=== PATIENT | female | born 1960 | race Caucasian/White ===

== ENCOUNTER 2018-08-18 14:13 | Inpatient (IN) | payer MEDICAID, OTHER ==
[~2018-08-18] VITALS: Ht 165.1 cm; Wt 111.2 kg
[2018-08-18] MEDS ORDERED: CIPR500T4 PO (14:42)
[2018-08-18] MEDS ORDERED: NYST50002 PO (14:45)
[2018-08-18] MEDS ORDERED: EMPA25TA PO (14:45)
[2018-08-18] MEDS ORDERED: LOSA100T15 PO (14:46)
[2018-08-18] MEDS ORDERED: ERGO500013 PO (14:47)
[2018-08-18] MEDS ORDERED: LATA2.5D2 BOTH EYES (14:47)
[2018-08-18] MEDS ORDERED: MONT10TA24 PO (14:47)
[2018-08-18] MEDS ORDERED: METF100010 PO (14:53)
[2018-08-18] MEDS ORDERED: OMEP40CA6 PO (14:54)
[2018-08-18] MEDS ORDERED: CITA20TA11 PO (14:55)
[2018-08-18] MEDS ORDERED: CRES20 PO (14:56)
[2018-08-18] MEDS ORDERED: TOLT4CAP13 PO (14:56)
[2018-08-18] MEDS ORDERED: CEFTRIAXONE 1 GM/50 ML (PMX) 50 ML IVPB ONE (15:30)
--- NOTE | 2018-08-18 17:54 | ERD ---
ER Documentation Chief Complaint Chief Complaint HEMATURIA AND UTI SYMPTOMS HPI This is a 58-year-old female with a past medical history of diabetes who presents to the emergency department complaining of hematuria frequency urgency and dysuria that have been present for the past 3 days. Patient was seen by her primary care physician 48 hours ago and was prescribed ciprofloxacin. However she states her symptoms have worsened where she is now experiencing a significant amount of hematuria. The patient states that roughly 1 year ago she had a similar presentation that required a Wayne placement for continuous bladder irrigation. However she states today that the hematuria is not as significant. She complains of mild suprapubic pain. She is scheduled to undergo an outpatient ultrasound of her pelvis. She has no palpitations. She has no shortness of breath at rest or exertion. She denies a headache. She had a tactile fever with shaking and chills. ROS All systems reviewed and are negative except as per history of present illness. Medications Home Meds Reported Medications Rosuvastatin Calcium* (Crestor*) 20 Mg Tablet, 20 MG PO QHS, #30 TAB 08/18/18 Tolterodine Tartrate* (Tolterodine Tartrate* ER) 4 Mg Cap.er.24h, 4 MG PO DAILY, #30 CAP 08/18/18 Citalopram Hydrobromide* (Celexa*) 20 Mg Tablet, 20 MG PO DAILY, #30 TAB 08/18/18 Omeprazole* (Omeprazole*) 40 Mg Capsule.dr, 40 MG PO DAILY, #30 CAP 08/18/18 Metformin Hcl* (Metformin Hcl*) 1,000 Mg Tablet, 1000 MG PO WITH BREAKFAST DINNE, #60 TAB 08/18/18 Montelukast Sodium* (Montelukast Sodium*) 10 Mg Tablet, 10 MG PO QHS, #30 TAB 08/18/18 Latanoprost (Latanoprost) 2.5 Ml Drops, 1 DROP BOTH EYES QHS, #1 BOTTLE 08/18/18 Ergocalciferol (Vitamin D2) (VITAMIN D2) 50,000 Unit Capsule, [id number] UNIT PO EVERY TUESDAY, CAP 08/18/18 Losartan Potassium* (Losartan Potassium*) 100 Mg Tablet, 100 MG PO DAILY, TAB 08/18/18 Empagliflozin (Jardiance) 25 Mg Tablet, 25 MG PO DAILY, TAB 08/18/18 Nystatin (Nystatin) 500,000 Unit Tablet, [id number] UNIT PO BID, TAB STARTED 08-16-18 FOR 7 DAYS 08/18/18 Ciprofloxacin Hcl* (Ciprofloxacin Hcl*) 500 Mg Tablet, 500 MG PO BID, #14 TAB STARTED 08-16-18 FOR 7 DAYS 08/18/18 Allergies Allergies: Uncoded Allergies: PENICILLIN (Allergy, Unknown, 08/18/18) PMhx/Soc Hx Cardiac Disorders: Yes (HTN) Hx Miscellaneous Medical Probl: Yes (UTI) Hx Alcohol Use: No Hx Substance Use: No Hx Tobacco Use: No Smoking Status: Never smoker Physical Exam Vitals Vital Signs Date Temp Pulse Resp B/P (MAP) Pulse Ox O2 O2 Flow FiO2 Time Delivery Rate 08/18/18 98.1 79 18 158/76 98 14:15 (103) Physical Exam Constitutional:Well-developed. Well-nourished. HEENT:Normocephalic. Atraumatic.Pupils were equal round reactive to light. Moist mucous membranes.No tonsillar exudates. Neck: No nuchal rigidity. No lymphadenopathy. No posterior cervical spine tenderness or step-offs. Respiratory: Not using accessory muscles of respiration.Lungs were clear to auscultation bilaterally. No rhonchi. No rales. No wheezing. Cardiovascular: Regular rate regular rhythm.No murmurs. No rubs were appreciated.S1, S2 normal. Distal pulses are palpable 2+ bilaterally. GI: Abdomen was soft. Suprapubic tenderness. Non Distended. No pulsatile abdominal masses or bruits. No rebound. No guarding. Bowel sounds were present and normal. Muscle skeletal: Full range of motion of both the upper and lower extremities bilaterally.Normal muscle tone.No assymetrical calf tenderness or swelling. Skin: No petechia, no purpura. No lesions on the palms or the soles of the feet. No maculopapular rash. NEURO: Patient was alert, awake, orientated x3.No facial droop. Gait observed and normal with no ataxia.Speech had regular rate and rhythm. No focal neurological deficits. Result Diagram: 08/18/18 1439 08/18/18 1440 Results 24 hrs Laboratory Tests Test 08/18/18 14:39 08/18/18 14:40 White Blood Count 11.3 10^3/ul Red Blood Count 4.82 10^6/ul Hemoglobin 13.5 g/dl Hematocrit 41.2 % Mean Corpuscular Volume 85.5 fl Mean Corpuscular Hemoglobin 28.0 pg Mean Corpuscular Hemoglobin Concent 32.8 g/dl Red Cell Distribution Width 13.7 % Platelet Count 251 10^3/UL Mean Platelet Volume 10.7 fl Immature Granulocytes % 0.300 % Neutrophils % 78.9 % Lymphocytes % 14.2 % Monocytes % 5.0 % Eosinophils % 1.2 % Basophils % 0.4 % Nucleated Red Blood Cells % 0.0 /100WBC Immature Granulocytes # 0.030 10^3/ul Neutrophils # 8.9 10^3/ul Lymphocytes # 1.6 10^3/ul Monocytes # 0.6 10^3/ul Eosinophils # 0.1 10^3/ul Basophils # 0.0 10^3/ul Nucleated Red Blood Cells # 0.0 10^3/ul Prothrombin Time 12.4 Sec Prothrombin Time Ratio 1.0 INR International Normalized Ratio 0.91 Activated Partial Thromboplast Time 23.0 Sec Urine Color RED Urine Clarity CLOUDY Urine pH 6.0 Urine Specific [place] 1.027 Urine Ketones TRACE mg/dL Urine Nitrite NEGATIVE mg/dL Urine Bilirubin NEGATIVE mg/dL Urine Urobilinogen NEGATIVE mg/dL Urine Leukocyte Esterase TRACE Marleny/ul Urine Microscopic RBC > 182 /HPF Urine Microscopic WBC > 182 /HPF Urine Bacteria FEW /HPF Urine Hemoglobin 3+ mg/dL Urine Glucose 3+ mg/dL Urine Total Protein 3+ mg/dl Sodium Level 140 mmol/L Potassium Level 4.5 mmol/L Chloride Level 101 mmol/L Carbon Dioxide Level 26 mmol/L Anion Gap 13 Blood Urea Nitrogen 15 mg/dl Creatinine 0.59 mg/dl Est Glomerular Filtrat Rate mL/min > 60 mL/min Glucose Level 226 mg/dl Calcium Level 9.9 mg/dl Total Bilirubin 0.3 mg/dl Direct Bilirubin 0.00 mg/dl Indirect Bilirubin 0.3 mg/dl Aspartate Amino Transf (AST/SGOT) 19 IU/L Alanine Aminotransferase (ALT/SGPT) 18 IU/L Alkaline Phosphatase 80 IU/L Total Protein 8.3 g/dl Albumin 4.6 g/dl Globulin 3.70 g/dl Albumin/Globulin Ratio 1.24 Current Medications Medications Dose Sig/Inocencio Start Time Status Last (Trade) Ordered Route PRN Stop Time Admin Dose Reason Admin Ceftriaxone 50 ml @ ONCE ONCE 08/18/18 DC 08/18/18 Sodium 100 mls/hr IVPB 15:30 16:03 08/18/18 15:59 Procedures/MDM Is a 58-year-old female presented to the emergency department with physical exam findings concerning for urinary tract infection. The patient had hematuria but had a normal hemoglobin. The patient had no urinary retention and I did not feel required continuous bowel irrigation at this time. She has an allergy to penicillin but states this makes her develop vaginal candidiasis. She was given IV ceftriaxone after urine culture was obtained. The patient did have a significant amount of pyuria with hematuria and I did feel required admission for IV antibiotics for failed outpatient treatment for urinary tract infection. 12 Lead EKG tracing ordered and reviewed by myself showed: Normal sinus rhythm of 65 bpm and no arrhythmia. AK interval normal. QRS duration normal. No ST segment elevation No ST segment depression. No changes consistent with acute ischemia. The patient will be admitted to the hospitalist Dr. Thompson. Patient will go to the medical surgical floor for observation. Departure Diagnosis: Primary Impression: Hematuria Hematuria type: unspecified type Qualified Codes: R31.9 - Hematuria, unspecified Additional Impressions: Urinary tract infection Urinary tract infection type: acute cystitis Hematuria presence: with hematuria Qualified Codes: N30.01 - Acute cystitis with hematuria Hyperglycemia without ketosis Condition: Fair Patient Instructions: Urinary Tract Infections in Women ART RICHEY MD Aug 18, 2018 17:53
[2018-08-18] MEDS ORDERED: ONDANSETRON 4 MG INJ IV PRN ×2 (18:30→19:00)
[2018-08-18] MEDS ORDERED: ACETAMINOPHEN 325 MG TAB PO PRN (18:30)
[2018-08-18] MEDS ORDERED: KETOROLAC 30 MG INJ IV PRN (19:00)
[2018-08-18] MEDS ORDERED: DOCUSATE SODIUM 100 MG CAP PO PRN (19:00)
[2018-08-18] MEDS ORDERED: NACL 0.9% 3 ML SYG IV SCH (19:00)
[2018-08-18] MEDS ORDERED: MAGNESIUM HYDROXIDE 30ML CUP PO PRN (19:00)
--- NOTE | 2018-08-18 19:16 | HP ---
Date/Time of Note Date/Time of Note DATE: 08/18/18 TIME: 18:56 Assessment/Plan VTE Prophylaxis SCD applied (from Nsg): Yes Pharmacological prophylaxis: NA/contraindicated Pharm contraindication: bleeding Lines/Catheters IV Catheter Type (from Nrsg): Saline Lock Assessment/Plan Assessment/Plan 1. Uti with hematuria - Will start on Levaquin IV and await urine culture results - US pelvic noted - Urology consulted given history of UTI 3 months ago and 1 year ago with hematuria - UA noted - pain control 2. DM - will check A1c - continue home medications - ISS and accuchecks 3. HTN - continue home medications - adjust as needed 4. HLD - continue statin 5. Diet - Carb controlled 6. Disposition - Admit to med/surg for treatment of UTI and evaluation of hematuria Result Diagram: 08/18/18 1439 08/18/18 1440 Results 24hrs Laboratory Tests Test 08/18/18 14:39 08/18/18 14:40 White Blood Count 11.3 H Red Blood Count 4.82 Hemoglobin 13.5 Hematocrit 41.2 Mean Corpuscular Volume 85.5 Mean Corpuscular Hemoglobin 28.0 L Mean Corpuscular Hemoglobin Concent 32.8 Red Cell Distribution Width 13.7 Platelet Count 251 Mean Platelet Volume 10.7 H Immature Granulocytes % 0.300 Neutrophils % 78.9 H Lymphocytes % 14.2 L Monocytes % 5.0 Eosinophils % 1.2 Basophils % 0.4 Nucleated Red Blood Cells % 0.0 Immature Granulocytes # 0.030 Neutrophils # 8.9 H Lymphocytes # 1.6 Monocytes # 0.6 Eosinophils # 0.1 Basophils # 0.0 Nucleated Red Blood Cells # 0.0 Prothrombin Time 12.4 Prothrombin Time Ratio 1.0 INR International Normalized Ratio 0.91 Activated Partial Thromboplast Time 23.0 Urine Color RED Urine Clarity CLOUDY A Urine pH 6.0 Urine Specific [place] 1.027 Urine Ketones TRACE A Urine Nitrite NEGATIVE Urine Bilirubin NEGATIVE Urine Urobilinogen NEGATIVE Urine Leukocyte Esterase TRACE A Urine Microscopic RBC > 182 H Urine Microscopic WBC > 182 H Urine Bacteria FEW A Urine Hemoglobin 3+ H Urine Glucose 3+ H Urine Total Protein 3+ H Sodium Level 140 Potassium Level 4.5 Chloride Level 101 Carbon Dioxide Level 26 Anion Gap 13 Blood Urea Nitrogen 15 Creatinine 0.59 Est Glomerular Filtrat Rate mL/min > 60 Glucose Level 226 H Calcium Level 9.9 Total Bilirubin 0.3 Direct Bilirubin 0.00 Indirect Bilirubin 0.3 Aspartate Amino Transf (AST/SGOT) 19 Alanine Aminotransferase (ALT/SGPT) 18 Alkaline Phosphatase 80 Total Protein 8.3 H Albumin 4.6 Globulin 3.70 H Albumin/Globulin Ratio 1.24 HPI/ROS Admit Date/Time Admit Date/Time 08/18/18 Hx of Present Illness 58 yo with PMH with diabetes mellitus and hypertension, and arthritis with failed outpatient treatment for UTI. Patient is complaining of hematuria and pelvic discomfort for the past 3 days. Patient was initially seen by her PCP and started on Ciprofloxacin. She was still experiencing hematuria which was resolving while in the ED but prior to discharge noticed increase in hematuria. Patient states she was recently admitted to [facility] 3 months ago for the same symptoms but was passing clots during that admission. Per family, she was admitted 1 year ago for the same symptoms and had to be started on CBI for 3 days. She was never evaluated by urology as outpatient and does not believe she was seen by Urology during her past admissions at other hospitals. Patient denies any chest pain, shortness of breath, nausea, vomiting, dizziness, abdominal pain, constipation, or diarrhea. ROS All 12 systems reviewed and pertinent positives as per HPI. All others negative. Constitutional: No fatigue, No nausea Eyes: No discharge ENT: No congestion Respiratory: No cough, No shortness of breath, No sputum, No wheezing Cardiovascular: No chest pain, No lightheadedness, No palpitations Gastrointestinal: No pain, No diarrhea, No nausea, No vomiting Genitourinary: hematuria; No dysuria, No discharge Musculoskeletal: no complaints Skin: No laceration, No rash Neurologic: No confusion, No focal-weakness, No syncope Endocrine: no complaints Lymphatic: no complaints Psychological: nl mood/affect Immunologic: no complaints PMH/Family/Social Past Medical History Medical History: diabetes, hypertension Medications Current Medications Ondansetron HCl (Zofran Inj) 4 mg BRIDGE ORDER PRN IV NAUSEA/VOMITING; Start 08/18/18 at 18:30; Stop 08/19/18 at 18:29 Acetaminophen (Tylenol Tab) 650 mg ER BRIDGE PRN PO .MILD PAIN 1-3 OR TEMP; Start 08/18/18 at 18:30; Stop 08/19/18 at 18:29 Uncoded Allergies: PENICILLIN (Allergy, Unknown, 08/18/18) Past Surgical History Past Surgical Hx: appendectomy Family History Significant Family History: no pertinent family hx Social History Alcohol Use: none Smoking Status: Never smoker Drug Use: none Exam/Review of Systems Vital Signs Vitals Vital Signs Date Temp Pulse Resp B/P (MAP) Pulse Ox O2 O2 Flow FiO2 Time Delivery Rate 08/18/18 68 18 141/88 100 Room Air 18:05 (105) 08/18/18 98.1 14:15 Exam Exam General: Patient is a pleasant female currently lying in bed in no acute distress HEENT: Atraumatic, normocephalic. The pupils are equal, round and reactive. Extraocular motor are intact Neck: Supple with full range of motion. No rigidity or meningismus Chest: Nontender Lungs: Clear to auscultation bilaterally no crackles rales or wheezing Heart: Normal S1-S2, Regular rhythm and rate. No murmur, S3, or S4 Abdomen: Soft ,nontender to palpation, nondistended , bowel sounds are present. No guarding no rebound tenderness , No masses or organomegaly. No costovertebral temporal angle mass Extremities: Normal to inspection, no edema no cyanosis Neurologic: Normal mental status, speech normal, cranial nerves II through XII are intact, motor and sensory are intact, no focal weakness Additional Comments Home medication reviewed PROCEDURE: US Pelvis. CLINICAL INDICATION: Pelvic pain. TECHNIQUE: The pelvis was evaluated with transabdominal and transvaginal sonography in the axial and sagittal planes. COMPARISON: No prior study is available for comparison. FINDINGS: Uterus: 6 x 3.4 cm. Endometrium: 2 mm. The bilateral ovaries are not visualized. Uterine masses: There is a 5 x 4 mm anechoic lesion within the cervix, likely a Nabothian cyst Free fluid: None. IMPRESSION: Nabothian cyst. The bilateral ovaries are not visualized. Recommend follow-up to exclude ovarian disease. Physician Live Date Time Electronically viewed and signed by Jaden Sarmiento Physician on 08/18/2018 16:25 JOSE CENTENO MD Aug 18, 2018 19:06
[2018-08-18] MEDS ORDERED: DEXTROSE 50% 50 ML SYRINGE IV PRN ×2 (20:00)
[2018-08-18] MEDS ORDERED: GLUCOSE GEL 15 GRAM TUBE BUCCAL PRN (20:00)
[2018-08-18] MEDS ORDERED: GLUCOSE GEL 15 GRAM TUBE PO PRN ×2 (20:00)
[2018-08-18] MEDS ORDERED: GLUCAGON 1 MG INJ IM PRN (20:00)
[2018-08-18] MEDS: LEVOFLOXACIN 750MG/D5W (PMX) 150 ML IVPB SCH (20:49)
--- NOTE | 2018-08-18 20:51 | CONS ---
Assessment/Plan Assessment/Plan Hospital Course (Demo Recall) 58-year-old female presented to the emergency room with a history of gross hematuria for the past 3 days. Patient does have a history of similar problem about 3 months earlier and was hospitalized at [facility] where she had a three-way Wayne catheter on continuous bladder irrigation. It has been assumed that the hematuria is from urinary tract infection. Patient did have renal ultrasound at the other facility and she was told the kidneys are okay she did have a CT scan but there was so much blood clots in the bladder that they could not diagnose anything else. She was not seen by a urologist. She denies any prior history of kidney stones. She did have pain with urination when she had the hematuria. On the examination the patient is obese and the abdomen is soft, I did pelvic exam and there was no discharge and no vaginal bleeding. Then I did do straight cath on her and collected about 250 mL of urine. Initially the urine came out clear then at the end it turns bloody. Urine was sent for analysis, culture and sensitivity and cytology. I will order also CT scan of the abdomen and pelvis to be done in a.m. Consultation Date/Type/Reason Admit Date/Time 08/18/18 Date of Consultation: Aug 18, 2018 Type of Consult Urology Reason for Consultation Hematuria Requesting Provider: JOSE CENTENO MD Date/Time of Note DATE: 08/18/18 TIME: 20:40 Hx of Present Illness 58-year-old female presented to the emergency room with a history of gross hematuria for the past 3 days. Patient does have a history of similar problem about 3 months earlier and was hospitalized at [facility] where she had a three-way Wayne catheter on continuous bladder irrigation. It has been assumed that the hematuria is from urinary tract infection. Patient did have renal ultrasound at the other facility and she was told the kidneys are okay she did have a CT scan but there was so much blood clots in the bladder that they could not diagnose anything else. She was not seen by a urologist. She denies any prior history of kidney stones. She did have pain with urination when she had the hematuria. Constitutional: no complaints Eyes: no complaints ENT: no complaints Respiratory: no complaints Cardiovascular: no complaints Gastrointestinal: no complaints Genitourinary: bleeding, dysuria, hematuria Musculoskeletal: no complaints Skin: no complaints Neurologic: no complaints Endocrine: no complaints Lymphatic: no complaints Past Medical History Medical History: diabetes, hypertension, other (Obesity) Home Meds Reported Medications Rosuvastatin Calcium* (Crestor*) 20 Mg Tablet, 20 MG PO QHS, #30 TAB 08/18/18 Tolterodine Tartrate* (Tolterodine Tartrate* ER) 4 Mg Cap.er.24h, 4 MG PO DAILY, #30 CAP 08/18/18 Citalopram Hydrobromide* (Celexa*) 20 Mg Tablet, 20 MG PO DAILY, #30 TAB 08/18/18 Omeprazole* (Omeprazole*) 40 Mg Capsule.dr, 40 MG PO DAILY, #30 CAP 08/18/18 Metformin Hcl* (Metformin Hcl*) 1,000 Mg Tablet, 1000 MG PO WITH BREAKFAST DINNE, #60 TAB 08/18/18 Montelukast Sodium* (Montelukast Sodium*) 10 Mg Tablet, 10 MG PO QHS, #30 TAB 08/18/18 Latanoprost (Latanoprost) 2.5 Ml Drops, 1 DROP BOTH EYES QHS, #1 BOTTLE 08/18/18 Ergocalciferol (Vitamin D2) (VITAMIN D2) 50,000 Unit Capsule, 64460 UNIT PO EVERY TUESDAY, CAP 08/18/18 Losartan Potassium* (Losartan Potassium*) 100 Mg Tablet, 100 MG PO DAILY, TAB 08/18/18 Empagliflozin (Jardiance) 25 Mg Tablet, 25 MG PO DAILY, TAB 08/18/18 Nystatin (Nystatin) 500,000 Unit Tablet, 989525 UNIT PO BID, TAB STARTED 08-16-18 FOR 7 DAYS 08/18/18 Ciprofloxacin Hcl* (Ciprofloxacin Hcl*) 500 Mg Tablet, 500 MG PO BID, #14 TAB STARTED 08-16-18 FOR 7 DAYS 08/18/18 Medications Current Medications Ondansetron HCl (Zofran Inj) 4 mg BRIDGE ORDER PRN IV NAUSEA/VOMITING; Start 08/18/18 at 18:30; Stop 08/19/18 at 18:29 Acetaminophen (Tylenol Tab) 650 mg ER BRIDGE PRN PO .MILD PAIN 1-3 OR TEMP; Start 08/18/18 at 18:30; Stop 08/19/18 at 18:29 Citalopram Hydrobromide (Celexa) 20 mg DAILY PO ; Start 08/19/18 at 09:00 Latanoprost (Xalatan) 1 drop QHS BOTH EYES ; Start 08/18/18 at 21:00 Losartan Potassium (Cozaar) 100 mg DAILY PO ; Start 08/19/18 at 09:00 Metformin HCl (Glucophage) 1,000 mg WITH BREAKFAST DINNE PO ; Start 08/19/18 at 08:00 Montelukast Sodium (Singulair) 10 mg QHS PO ; Start 08/18/18 at 21:00 Tolterodine Tartrate (Detrol La) 4 mg DAILY PO ; Start 08/19/18 at 09:00 Atorvastatin Calcium (Lipitor) 80 mg DAILY@21 PO ; Start 08/18/18 at 21:00 Pantoprazole (Protonix Tab) 40 mg DAILY@06 PO ; Start 08/19/18 at 06:00 IV Flush (NS 3 ml) 3 ml PER PROTOCOL IV ; Start 08/18/18 at 19:00 Ondansetron HCl (Zofran Inj) 4 mg Q6H PRN IV NAUSEA/VOMITING; Start 08/18/18 at 19:00 Acetaminophen (Tylenol Tab) 650 mg Q6H PRN PO .PAIN 1-3 OR TEMP; Start 08/18/18 at 19:00 Docusate Sodium (Colace) 100 mg Q12H PRN PO .CONSTIPATION; Start 08/18/18 at 19:00 Magnesium Hydroxide (Milk Of Mag) 30 ml DAILY PRN PO .CONSTIPATION; Start 08/18/18 at 19:00 Ketorolac Tromethamine (Toradol) 30 mg Q6H PRN IV MILD TO MODERATE PAIN (1-7); Start 08/18/18 at 19:00; Stop 08/21/18 at 18:59 Levofloxacin/ Dextrose 150 ml @ 100 mls/hr Q24H IVPB ; Start 08/18/18 at 19:00 Insulin Aspart (Novolog Insulin Pen) NOVOLOG *MILD* ALGORITHM WITH MEALS BEDTIME SC ; Start 08/18/18 at 21:00 Miscellaneous Information 1 ea NOTE XX ; Start 08/18/18 at 20:00 Glucose (Glutose) 15 gm Q15M PRN PO DECREASED GLUCOSE; Start 08/18/18 at 20:00 Glucose (Glutose) 22.5 gm Q15M PRN PO DECREASED GLUCOSE; Start 08/18/18 at 20:00 Dextrose (D50w Syringe) 25 ml Q15M PRN IV DECREASED GLUCOSE; Start 08/18/18 at 20:00 Dextrose (D50w Syringe) 50 ml Q15M PRN IV DECREASED GLUCOSE; Start 08/18/18 at 20:00 Glucagon (Glucagen) 1 mg Q15M PRN IM DECREASED GLUCOSE; Start 08/18/18 at 20:00 Glucose (Glutose) 15 gm Q15M PRN BUCCAL DECREASED GLUCOSE; Start 08/18/18 at 20:00 Allergies: Uncoded Allergies: PENICILLIN (Allergy, Severe, TONGUE SWELLING, RASH, 08/18/18) Past Surgical History Past Surgical Hx: appendectomy Social History Alcohol Use: none Smoking Status: Never smoker Drug Use: none Other Social History She is a 5, para 3, 2 abortions, 3 normal deliveries Exam/Review of Systems Exam Vitals Vital Signs Date Temp Pulse Resp B/P (MAP) Pulse Ox O2 O2 Flow FiO2 Time Delivery Rate 08/18/18 68 19 134/73 98 Room Air 20:07 (93) 08/18/18 98.1 14:15 Constitutional: alert Psych: no complaints Head: normocephalic Eyes: nl conjunctiva ENMT: nl external ears & nose Neck: supple, non-tender Respiratory: normal air movement; No wheezing Cardiovascular: No jugular venous distention (JVD) Gastrointestinal: soft, surgical scars, other (Obese,) Genitourinary - Female: other (Pelvic exam: No mass and no discharge and no bleeding. I did straight cath on her and initially the urine came out clear then at the end became grossly bloody.) Musculoskeletal: nl extremities to inspection Extremities: No calf tenderness Neurological: nl mental status Results Result Diagram: 08/18/18 1439 08/18/18 1440 Results 24hrs Laboratory Tests Test 08/18/18 14:39 08/18/18 14:40 White Blood Count 11.3 H Red Blood Count 4.82 Hemoglobin 13.5 Hematocrit 41.2 Mean Corpuscular Volume 85.5 Mean Corpuscular Hemoglobin 28.0 L Mean Corpuscular Hemoglobin Concent 32.8 Red Cell Distribution Width 13.7 Platelet Count 251 Mean Platelet Volume 10.7 H Immature Granulocytes % 0.300 Neutrophils % 78.9 H Lymphocytes % 14.2 L Monocytes % 5.0 Eosinophils % 1.2 Basophils % 0.4 Nucleated Red Blood Cells % 0.0 Immature Granulocytes # 0.030 Neutrophils # 8.9 H Lymphocytes # 1.6 Monocytes # 0.6 Eosinophils # 0.1 Basophils # 0.0 Nucleated Red Blood Cells # 0.0 Prothrombin Time 12.4 Prothrombin Time Ratio 1.0 INR International Normalized Ratio 0.91 Activated Partial Thromboplast Time 23.0 Urine Color RED Urine Clarity CLOUDY A Urine pH 6.0 Urine Specific [place] 1.027 Urine Ketones TRACE A Urine Nitrite NEGATIVE Urine Bilirubin NEGATIVE Urine Urobilinogen NEGATIVE Urine Leukocyte Esterase TRACE A Urine Microscopic RBC > 182 H Urine Microscopic WBC > 182 H Urine Bacteria FEW A Urine Hemoglobin 3+ H Urine Glucose 3+ H Urine Total Protein 3+ H Sodium Level 140 Potassium Level 4.5 Chloride Level 101 Carbon Dioxide Level 26 Anion Gap 13 Blood Urea Nitrogen 15 Creatinine 0.59 Est Glomerular Filtrat Rate mL/min > 60 Glucose Level 226 H Calcium Level 9.9 Total Bilirubin 0.3 Direct Bilirubin 0.00 Indirect Bilirubin 0.3 Aspartate Amino Transf (AST/SGOT) 19 Alanine Aminotransferase (ALT/SGPT) 18 Alkaline Phosphatase 80 Creatine Kinase 65 Creatine Kinase Index 1.3 Creatinine Kinase MB (Mass) 0.86 Troponin I < 0.012 Total Protein 8.3 H Albumin 4.6 Globulin 3.70 H Albumin/Globulin Ratio 1.24 Imaging Imaging Transvaginal pelvic ultrasound: Nabothian cyst. The bilateral ovaries are not visualized. Recommend follow-up to exclude ovarian disease Medications Medication Current Medications Ondansetron HCl (Zofran Inj) 4 mg BRIDGE ORDER PRN IV NAUSEA/VOMITING; Start 08/18/18 at 18:30; Stop 08/19/18 at 18:29 Acetaminophen (Tylenol Tab) 650 mg ER BRIDGE PRN PO .MILD PAIN 1-3 OR TEMP; Start 08/18/18 at 18:30; Stop 08/19/18 at 18:29 Citalopram Hydrobromide (Celexa) 20 mg DAILY PO ; Start 08/19/18 at 09:00 Latanoprost (Xalatan) 1 drop QHS BOTH EYES ; Start 08/18/18 at 21:00 Losartan Potassium (Cozaar) 100 mg DAILY PO ; Start 08/19/18 at 09:00 Metformin HCl (Glucophage) 1,000 mg WITH BREAKFAST DINNE PO ; Start 08/19/18 at 08:00 Montelukast Sodium (Singulair) 10 mg QHS PO ; Start 08/18/18 at 21:00 Tolterodine Tartrate (Detrol La) 4 mg DAILY PO ; Start 08/19/18 at 09:00 Atorvastatin Calcium (Lipitor) 80 mg DAILY@21 PO ; Start 08/18/18 at 21:00 Pantoprazole (Protonix Tab) 40 mg DAILY@06 PO ; Start 08/19/18 at 06:00 IV Flush (NS 3 ml) 3 ml PER PROTOCOL IV ; Start 08/18/18 at 19:00 Ondansetron HCl (Zofran Inj) 4 mg Q6H PRN IV NAUSEA/VOMITING; Start 08/18/18 at 19:00 Acetaminophen (Tylenol Tab) 650 mg Q6H PRN PO .PAIN 1-3 OR TEMP; Start 08/18/18 at 19:00 Docusate Sodium (Colace) 100 mg Q12H PRN PO .CONSTIPATION; Start 08/18/18 at 19:00 Magnesium Hydroxide (Milk Of Mag) 30 ml DAILY PRN PO .CONSTIPATION; Start 08/18/18 at 19:00 Ketorolac Tromethamine (Toradol) 30 mg Q6H PRN IV MILD TO MODERATE PAIN (1-7); Start 08/18/18 at 19:00; Stop 08/21/18 at 18:59 Levofloxacin/ Dextrose 150 ml @ 100 mls/hr Q24H IVPB ; Start 08/18/18 at 19:00 Insulin Aspart (Novolog Insulin Pen) NOVOLOG *MILD* ALGORITHM WITH MEALS BE DTIME SC ; Start 08/18/18 at 21:00 Miscellaneous Information 1 ea NOTE XX ; Start 08/18/18 at 20:00 Glucose (Glutose) 15 gm Q15M PRN PO DECREASED GLUCOSE; Start 08/18/18 at 20:00 Glucose (Glutose) 22.5 gm Q15M PRN PO DECREASED GLUCOSE; Start 08/18/18 at 20:00 Dextrose (D50w Syringe) 25 ml Q15M PRN IV DECREASED GLUCOSE; Start 08/18/18 at 20:00 Dextrose (D50w Syringe) 50 ml Q15M PRN IV DECREASED GLUCOSE; Start 08/18/18 at 20:00 Glucagon (Glucagen) 1 mg Q15M PRN IM DECREASED GLUCOSE; Start 08/18/18 at 20:00 Glucose (Glutose) 15 gm Q15M PRN BUCCAL DECREASED GLUCOSE; Start 08/18/18 at 20:00 LUCY INMAN MD Aug 18, 2018 20:51
[2018-08-18 22:15] VITALS: BP 101/65; PULSE 73; RESP 18
[2018-08-18 22:30] VITALS: Ht 165.1 cm; Wt 111.2 kg
[2018-08-18] MEDS: INSULIN ASPART [NOVOLOG] 3 ML PEN SC SCH (22:52)
[2018-08-18] MEDS: MONTELUKAST 10 MG TAB PO SCH (23:00)
[2018-08-18] MEDS: LATANOPROST 0.005% 2.5 ML OPH BOTH EYES SCH (23:00)
[2018-08-18] MEDS: ATORVASTATIN 80 MG TAB PO SCH (23:00)
[2018-08-19 02:00] VITALS: BP 110/62; PULSE 63; RESP 18
[2018-08-19] MEDS: PANTOPRAZOLE (EC) 40 MG TAB PO SCH ×2 (06:00→08:42)
[2018-08-19 08:00] VITALS: BP 118/60; PULSE 64; RESP 17
[2018-08-19] MEDS: metFORMIN 500 MG TAB PO SCH ×2 (08:00→17:02)
[2018-08-19] MEDS ORDERED: SOD CHLORIDE 0.9% 100 ML ONE (08:09)
[2018-08-19] MEDS ORDERED: IOHEXOL 300MG/ML 150 ML BTL ONE (08:09)
[2018-08-19] MEDS: INSULIN ASPART [NOVOLOG] 3 ML PEN SC SCH ×4 (08:39→20:44)
[2018-08-19] MEDS: TOLTERODINE (SR) 4 MG CAP PO SCH (08:40)
[2018-08-19] MEDS: LOSARTAN 50 MG TAB PO SCH (08:40)
[2018-08-19] MEDS: CITALOPRAM 20 MG TAB PO SCH (08:41)
--- NOTE | 2018-08-19 14:18 | CONS ---
Consult Date/Type/Reason Admit Date/Time Aug 19, 2018 at 08:31 Initial Consult Date 08/18/18 Type of Consultation: Urology Reason for Consultation Gross hematuria Requesting Provider: JOSE CENTENO MD Date/Time of Note DATE: 08/19/18 TIME: 14:13 Subjective Patient states that her urine is clear today. She denies any pain. She is anxious to go home as she wants to take care of her mother. Objective Vitals Vital Signs Date Temp Pulse Resp B/P (MAP) Pulse Ox O2 O2 Flow FiO2 Time Delivery Rate 08/19/18 97.9 64 17 118/60 98 08:00 (79) 08/18/18 Room Air 22:03 Intake and Output 08/18/18 08/18/18 08/19/18 1515:00 23:00 07:00 IntakeIntake Total 390 ml BalanceBalance 390 ml Exam The urine is clear, the urine culture so far no growth. CBC shows a normal white count. Urine cytology is pending. CT scan of the abdomen and pelvis with IV contrast was done earlier but not reported yet. The kidneys look normal. The bladder did not show any pathology but the bladder is not full and the CT scan could very well miss a bladder tumor. Results/Medications Result Diagram: 08/19/18 0537 08/19/18 0537 Results 24 hrs Laboratory Tests Test 08/18/18 14:39 08/18/18 14:40 08/18/18 20:39 08/18/18 22:50 White Blood Count 11.3 H Red Blood Count 4.82 Hemoglobin 13.5 Hematocrit 41.2 Mean Corpuscular 85.5 Volume Mean Corpuscular 28.0 L Hemoglobin Mean Corpuscular 32.8 Hemoglobin Concent Red Cell 13.7 Distribution Width Platelet Count 251 Mean Platelet Volume 10.7 H Immature 0.300 Granulocytes % Neutrophils % 78.9 H Lymphocytes % 14.2 L Monocytes % 5.0 Eosinophils % 1.2 Basophils % 0.4 Nucleated Red Blood 0.0 Cells % Immature 0.030 Granulocytes # Neutrophils # 8.9 H Lymphocytes # 1.6 Monocytes # 0.6 Eosinophils # 0.1 Basophils # 0.0 Nucleated Red Blood 0.0 Cells # Prothrombin Time 12.4 Prothrombin Time 1.0 Ratio INR International 0.91 Normalized Ratio Activated 23.0 Partial Thromboplast Time Urine Color RED YELLOW Urine Clarity CLOUDY A CLEAR Urine pH 6.0 6.0 Urine Specific 1.027 1.022 [place] Urine Ketones TRACE A 1+ H Urine Nitrite NEGATIVE NEGATIVE Urine Bilirubin NEGATIVE NEGATIVE Urine Urobilinogen NEGATIVE NEGATIVE Urine Leukocyte TRACE A NEGATIVE Esterase Urine Microscopic > 182 H > 182 H RBC Urine Microscopic > 182 H 9 H WBC Urine Bacteria FEW A Urine Hemoglobin 3+ H 3+ H Urine Glucose 3+ H 3+ H Urine Total Protein 3+ H NEGATIVE Sodium Level 140 Potassium Level 4.5 Chloride Level 101 Carbon Dioxide Level 26 Anion Gap 13 Blood Urea Nitrogen 15 Creatinine 0.59 Est Glomerular > 60 Filtrat Rate mL/min Glucose Level 226 H Calcium Level 9.9 Total Bilirubin 0.3 Direct Bilirubin 0.00 Indirect Bilirubin 0.3 Aspartate Amino 19 Transf (AST/SGOT) Alanine 18 Aminotransferase (AL T/SGPT) Alkaline Phosphatase 80 Creatine Kinase 65 Creatine Kinase 1.3 Index Creatinine Kinase MB 0.86 (Mass) Troponin I < 0.012 Total Protein 8.3 H Albumin 4.6 Globulin 3.70 H Albumin/Globulin 1.24 Ratio Bedside Glucose 161 Test 08/19/18 05:37 08/19/18 07:58 08/19/18 12:03 White Blood Count 8.2 # Red Blood Count 4.62 Hemoglobin 12.9 Hematocrit 39.5 Mean Corpuscular 85.5 Volume Mean Corpuscular 27.9 L Hemoglobin Mean Corpuscular 32.7 Hemoglobin Concent Red Cell 13.9 Distribution Width Platelet Count 254 Mean Platelet Volume 11.3 H Immature 0.200 Granulocytes % Neutrophils % 61.4 Lymphocytes % 29.9 Monocytes % 6.0 Eosinophils % 2.1 Basophils % 0.4 Nucleated Red Blood 0.0 Cells % Immature 0.020 Granulocytes # Neutrophils # 5.0 Lymphocytes # 2.4 Monocytes # 0.5 Eosinophils # 0.2 Basophils # 0.0 Nucleated Red Blood 0.0 Cells # Sodium Level 141 Potassium Level 4.6 Chloride Level 103 Carbon Dioxide Level 28 Anion Gap 10 Blood Urea Nitrogen 13 Creatinine 0.59 Est Glomerular > 60 Filtrat Rate mL/min Glucose Level 253 H Hemoglobin A1c 8.0 H Calcium Level 9.6 Magnesium Level 2.2 Bedside Glucose 191 232 H Home Meds Reported Medications Rosuvastatin Calcium* (Crestor*) 20 Mg Tablet, 20 MG PO QHS, #30 TAB 08/18/18 Tolterodine Tartrate* (Tolterodine Tartrate* ER) 4 Mg Cap.er.24h, 4 MG PO DAILY, #30 CAP 08/18/18 Citalopram Hydrobromide* (Celexa*) 20 Mg Tablet, 20 MG PO DAILY, #30 TAB 08/18/18 Omeprazole* (Omeprazole*) 40 Mg Capsule.dr, 40 MG PO DAILY, #30 CAP 08/18/18 Metformin Hcl* (Metformin Hcl*) 1,000 Mg Tablet, 1000 MG PO WITH BREAKFAST DINNE, #60 TAB 08/18/18 Montelukast Sodium* (Montelukast Sodium*) 10 Mg Tablet, 10 MG PO QHS, #30 TAB 08/18/18 Latanoprost (Latanoprost) 2.5 Ml Drops, 1 DROP BOTH EYES QHS, #1 BOTTLE 08/18/18 Ergocalciferol (Vitamin D2) (VITAMIN D2) 50,000 Unit Capsule, 65401 UNIT PO EVERY TUESDAY, CAP 08/18/18 Losartan Potassium* (Losartan Potassium*) 100 Mg Tablet, 100 MG PO DAILY, TAB 08/18/18 Empagliflozin (Jardiance) 25 Mg Tablet, 25 MG PO DAILY, TAB 08/18/18 Nystatin (Nystatin) 500,000 Unit Tablet, 339811 UNIT PO BID, TAB STARTED 08-16-18 FOR 7 DAYS 08/18/18 Ciprofloxacin Hcl* (Ciprofloxacin Hcl*) 500 Mg Tablet, 500 MG PO BID, #14 TAB STARTED 08-16-18 FOR 7 DAYS 08/18/18 Medications Current Medications Ondansetron HCl (Zofran Inj) 4 mg BRIDGE ORDER PRN IV NAUSEA/VOMITING; Start 08/18/18 at 18:30; Stop 08/19/18 at 18:29 Acetaminophen (Tylenol Tab) 650 mg ER BRIDGE PRN PO .MILD PAIN 1-3 OR TEMP; Start 08/18/18 at 18:30; Stop 08/19/18 at 18:29 Citalopram Hydrobromide (Celexa) 20 mg DAILY PO ; Start 08/19/18 at 09:00 Latanoprost (Xalatan) 1 drop QHS BOTH EYES Last administered on 08/18/18at 23:00; Admin Dose 1 DROP; Start 08/18/18 at 21:00 Losartan Potassium (Cozaar) 100 mg DAILY PO Last administered on 08/19/18at 08:40; Admin Dose 100 MG; Start 08/19/18 at 09:00 Metformin HCl (Glucophage) 1,000 mg WITH BREAKFAST DINNE PO ; Start 08/19/18 at 08:00 Montelukast Sodium (Singulair) 10 mg QHS PO ; Start 08/18/18 at 21:00 Tolterodine Tartrate (Detrol La) 4 mg DAILY PO Last administered on 08/19/18at 08:40; Admin Dose 4 MG; Start 08/19/18 at 09:00 Atorvastatin Calcium (Lipitor) 80 mg DAILY@21 PO Last administered on 08/18/18at 23:00; Admin Dose 80 MG; Start 08/18/18 at 21:00 Pantoprazole (Protonix Tab) 40 mg DAILY@06 PO Last administered on 08/19/18at 08:42; Admin Dose 40 MG; Start 08/19/18 at 06:00 IV Flush (NS 3 ml) 3 ml PER PROTOCOL IV ; Start 08/18/18 at 19:00 Ondansetron HCl (Zofran Inj) 4 mg Q6H PRN IV NAUSEA/VOMITING; Start 08/18/18 at 19:00 Acetaminophen (Tylenol Tab) 650 mg Q6H PRN PO .PAIN 1-3 OR TEMP; Start 08/18/18 at 19:00 Docusate Sodium (Colace) 100 mg Q12H PRN PO .CONSTIPATION; Start 08/18/18 at 19:00 Magnesium Hydroxide (Milk Of Mag) 30 ml DAILY PRN PO .CONSTIPATION; Start 08/18/18 at 19:00 Ketorolac Tromethamine (Toradol) 30 mg Q6H PRN IV MILD TO MODERATE PAIN (1-7); Start 08/18/18 at 19:00; Stop 08/21/18 at 18:59 Levofloxacin/ Dextrose 150 ml @ 100 mls/hr Q24H IVPB Last administered on at 20:49; Admin Dose 100 MLS/HR; Start 08/18/18 at 19:00 Insulin Aspart (Novolog Insulin Pen) NOVOLOG *MILD* ALGORITHM WITH MEALS BEDTIME SC Last administered on 08/19/18at 12:05; Admin Dose 3 UNIT; Start 08/18/18 at 21:00 Miscellaneous Information 1 ea NOTE XX ; Start 08/18/18 at 20:00 Glucose (Glutose) 15 gm Q15M PRN PO DECREASED GLUCOSE; Start 08/18/18 at 20:00 Glucose (Glutose) 22.5 gm Q15M PRN PO DECREASED GLUCOSE; Start 08/18/18 at 20:00 Dextrose (D50w Syringe) 25 ml Q15M PRN IV DECREASED GLUCOSE; Start 08/18/18 at 20:00 Dextrose (D50w Syringe) 50 ml Q15M PRN IV DECREASED GLUCOSE; Start 08/18/18 at 20:00 Glucagon (Glucagen) 1 mg Q15M PRN IM DECREASED GLUCOSE; Start 08/18/18 at 20:00 Glucose (Glutose) 15 gm Q15M PRN BUCCAL DECREASED GLUCOSE; Start 08/18/18 at 20:00 Assessment/Plan Hospital Course (Demo Recall) 58-year-old female presented to the emergency room with a history of gross hematuria for the past 3 days. Patient does have a history of similar problem about 3 months earlier and was hospitalized at [facility] where she had a three-way Wayne catheter on continuous bladder irrigation. It has been assumed that the hematuria is from urinary tract infection. Patient did have renal ultrasound at the other facility and she was told the kidneys are okay she did have a CT scan but there was so much blood clots in the bladder that they could not diagnose anything else. She was not seen by a urologist. She denies any prior history of kidney stones. She did have pain with urination when she had the hematuria. On the examination the patient is obese and the abdomen is soft, I did pelvic exam and there was no discharge and no vaginal bleeding. Then I did do straight cath on her and collected about 250 mL of urine. Initially the urine came out clear then at the end it turns bloody. Patient states that she is urinating clear urine now. The urine culture showed no growth in 24 hours. Urine cytology is pending. The CT scan of the abdomen and pelvis with IV contrast was done and the report is pending. I looked at the CT scan and basically the kidneys appeared to be normal without any obvious cause for the hematuria. With the blood coming from the bladder one has to rule out possibility of bladder tumor after making sure there is no infection. I will try to schedule her for cystoscopy and possible TUR bladder tumor and retrograde pyelograms on Tuesday. By then we should have the final report of the urine culture. I explained that to her and to her daughter on the phone. The patient is anxious to go home. If she does we still do not have an answer and our explain [place] for her gross hematuria and she will need to follow-up as an outpatient. LUCY INMAN MD Aug 19, 2018 14:18
[2018-08-19 15:34] VITALS: BP 115/61; PULSE 79; RESP 18
--- NOTE | 2018-08-19 16:13 | PN ---
Date/Time of Note Date/Time of Note DATE: 08/19/18 TIME: 16:04 Assessment/Plan VTE Prophylaxis Risk score (from Ns)>0 risk: 3 SCD applied (from Ns): Yes Pharmacological prophylaxis: NA/contraindicated Pharm contraindication: bleeding Lines/Catheters IV Catheter Type (from Nrs): Saline Lock Assessment/Plan Assessment/Plan 1. UTI with hematuria - Urine Cx negative at this time as expected given was on antibiotics as outpatient - awaiting urine cytology - US pelvic noted - Urology consultation appreciated and recommending cystoscopy and TURB on Tuesday - UA noted - pain control - CT A/P results noted. 2. DM - A1c noted - continue home medications - ISS and accuchecks 3. HTN - continue home medications - adjust as needed 4. HLD - continue statin 5. Disposition - Awaiting urine cytology. Result Diagram: 08/19/18 0537 08/19/18 0537 Results 24hrs Laboratory Tests Test 08/18/18 20:39 08/18/18 22:50 08/19/18 05:37 08/19/18 07:58 Urine Color YELLOW Urine Clarity CLEAR Urine pH 6.0 Urine Specific 1.022 [place] Urine Ketones 1+ H Urine Nitrite NEGATIVE Urine Bilirubin NEGATIVE Urine Urobilinogen NEGATIVE Urine Leukocyte NEGATIVE Esterase Urine Microscopic > 182 H RBC Urine Microscopic 9 H WBC Urine Hemoglobin 3+ H Urine Glucose 3+ H Urine Total Protein NEGATIVE Bedside Glucose 161 191 White Blood Count 8.2 # Red Blood Count 4.62 Hemoglobin 12.9 Hematocrit 39.5 Mean Corpuscular 85.5 Volume Mean Corpuscular 27.9 L Hemoglobin Mean Corpuscular 32.7 Hemoglobin Concent Red Cell 13.9 Distribution Width Platelet Count 254 Mean Platelet Volume 11.3 H Immature 0.200 Granulocytes % Neutrophils % 61.4 Lymphocytes % 29.9 Monocytes % 6.0 Eosinophils % 2.1 Basophils % 0.4 Nucleated Red Blood 0.0 Cells % Immature 0.020 Granulocytes # Neutrophils # 5.0 Lymphocytes # 2.4 Monocytes # 0.5 Eosinophils # 0.2 Basophils # 0.0 Nucleated Red Blood 0.0 Cells # Sodium Level 141 Potassium Level 4.6 Chloride Level 103 Carbon Dioxide Level 28 Anion Gap 10 Blood Urea Nitrogen 13 Creatinine 0.59 Est Glomerular > 60 Filtrat Rate mL/min Glucose Level 253 H Hemoglobin A1c 8.0 H Calcium Level 9.6 Magnesium Level 2.2 Test 6/29/19 12:03 Bedside Glucose 232 H Subjective 24 Hr Interval Summary Free Text/Dictation Patient anxious to go home. States no longer experiencing hematuria. No acute overnight events. Exam/Review of Systems Exam Vitals Vital Signs Date Temp Pulse Resp B/P (MAP) Pulse Ox O2 O2 Flow FiO2 Time Delivery Rate 08/19/18 97.3 79 18 115/61 99 15:34 (79) 08/18/18 Room Air 22:03 Intake and Output 08/18/18 08/18/18 08/19/18 1515:00 23:00 07:00 IntakeIntake Total 390 ml BalanceBalance 390 ml Exam General: Patient is a pleasant female currently lying in bed in no acute distress Neck: Supple Chest: Nontender Lungs: Clear to auscultation bilaterally no crackles rales or wheezing Heart: Normal S1-S2, Regular rhythm and rate. No murmur, S3, or S4 Abdomen: Soft ,nontender to palpation, nondistended , bowel sounds are present. No guarding no rebound tenderness Extremities: Normal to inspection, no edema no cyanosis Results Results 24hrs Laboratory Tests Test 08/18/18 20:39 08/18/18 22:50 08/19/18 05:37 08/19/18 07:58 Urine Color YELLOW Urine Clarity CLEAR Urine pH 6.0 Urine Specific 1.022 [place] Urine Ketones 1+ H Urine Nitrite NEGATIVE Urine Bilirubin NEGATIVE Urine Urobilinogen NEGATIVE Urine Leukocyte NEGATIVE Esterase Urine Microscopic > 182 H RBC Urine Microscopic 9 H WBC Urine Hemoglobin 3+ H Urine Glucose 3+ H Urine Total Protein NEGATIVE Bedside Glucose 161 191 White Blood Count 8.2 # Red Blood Count 4.62 Hemoglobin 12.9 Hematocrit 39.5 Mean Corpuscular 85.5 Volume Mean Corpuscular 27.9 L Hemoglobin Mean Corpuscular 32.7 Hemoglobin Concent Red Cell 13.9 Distribution Width Platelet Count 254 Mean Platelet Volume 11.3 H Immature 0.200 Granulocytes % Neutrophils % 61.4 Lymphocytes % 29.9 Monocytes % 6.0 Eosinophils % 2.1 Basophils % 0.4 Nucleated Red Blood 0.0 Cells % Immature 0.020 Granulocytes # Neutrophils # 5.0 Lymphocytes # 2.4 Monocytes # 0.5 Eosinophils # 0.2 Basophils # 0.0 Nucleated Red Blood 0.0 Cells # Sodium Level 141 Potassium Level 4.6 Chloride Level 103 Carbon Dioxide Level 28 Anion Gap 10 Blood Urea Nitrogen 13 Creatinine 0.59 Est Glomerular > 60 Filtrat Rate mL/min Glucose Level 253 H Hemoglobin A1c 8.0 H Calcium Level 9.6 Magnesium Level 2.2 Test 08/19/18 12:03 Bedside Glucose 232 H Medications Medication Current Medications Ondansetron HCl (Zofran Inj) 4 mg BRIDGE ORDER PRN IV NAUSEA/VOMITING; Start 08/18/18 at 18:30; Stop 08/19/18 at 18:29 Acetaminophen (Tylenol Tab) 650 mg ER BRIDGE PRN PO .MILD PAIN 1-3 OR TEMP; Start 08/18/18 at 18:30; Stop 08/19/18 at 18:29 Citalopram Hydrobromide (Celexa) 20 mg DAILY PO ; Start 08/19/18 at 09:00 Latanoprost (Xalatan) 1 drop QHS BOTH EYES Last administered on 08/18/18at 23:00; Admin Dose 1 DROP; Start 08/18/18 at 21:00 Losartan Potassium (Cozaar) 100 mg DAILY PO Last administered on 08/19/18at 08:40; Admin Dose 100 MG; Start 08/19/18 at 09:00 Metformin HCl (Glucophage) 1,000 mg WITH BREAKFAST DINNE PO ; Start 08/19/18 at 08:00 Montelukast Sodium (Singulair) 10 mg QHS PO ; Start 08/18/18 at 21:00 Tolterodine Tartrate (Detrol La) 4 mg DAILY PO Last administered on 08/19/18at 08:40; Admin Dose 4 MG; Start 08/19/18 at 09:00 Atorvastatin Calcium (Lipitor) 80 mg DAILY@21 PO Last administered on 08/18/18at 23:00; Admin Dose 80 MG; Start 08/18/18 at 21:00 Pantoprazole (Protonix Tab) 40 mg DAILY@06 PO Last administered on 08/19/18at 08:42; Admin Dose 40 MG; Start 08/19/18 at 06:00 IV Flush (NS 3 ml) 3 ml PER PROTOCOL IV ; Start 08/18/18 at 19:00 Ondansetron HCl (Zofran Inj) 4 mg Q6H PRN IV NAUSEA/VOMITING; Start 08/18/18 at 19:00 Acetaminophen (Tylenol Tab) 650 mg Q6H PRN PO .PAIN 1-3 OR TEMP; Start 08/18/18 at 19:00 Docusate Sodium (Colace) 100 mg Q12H PRN PO .CONSTIPATION; Start 08/18/18 at 19:00 Magnesium Hydroxide (Milk Of Mag) 30 ml DAILY PRN PO .CONSTIPATION; Start 08/18/18 at 19:00 Ketorolac Tromethamine (Toradol) 30 mg Q6H PRN IV MILD TO MODERATE PAIN (1-7); Start 08/18/18 at 19:00; Stop 08/21/18 at 18:59 Levofloxacin/ Dextrose 150 ml @ 100 mls/hr Q24H IVPB Last administered on 08/18/18at 20:49; Admin Dose 100 MLS/HR; Start 08/18/18 at 19:00 Insulin Aspart (Novolog Insulin Pen) NOVOLOG *MILD* ALGORITHM WITH MEALS BEDTIME SC Last administered on 08/19/18at 12:05; Admin Dose 3 UNIT; Start 08/18/18 at 21:00 Miscellaneous Information 1 ea NOTE XX ; Start 08/18/18 at 20:00 Glucose (Glutose) 15 gm Q15M PRN PO DECREASED GLUCOSE; Start 08/18/18 at 20:00 Glucose (Glutose) 22.5 gm Q15M PRN PO DECREASED GLUCOSE; Start 08/18/18 at 20:00 Dextrose (D50w Syringe) 25 ml Q15M PRN IV DECREASED GLUCOSE; Start 08/18/18 at 20:00 Dextrose (D50w Syringe) 50 ml Q15M PRN IV DECREASED GLUCOSE; Start 08/18/18 at 20:00 Glucagon (Glucagen) 1 mg Q15M PRN IM DECREASED GLUCOSE; Start 08/18/18 at 20:00 Glucose (Glutose) 15 gm Q15M PRN BUCCAL DECREASED GLUCOSE; Start 08/18/18 at 20:00 JOSE CENTENO MD Aug 19, 2018 16:13
[2018-08-19] MEDS: LEVOFLOXACIN 750MG/D5W (PMX) 150 ML IVPB SCH (18:09)
[2018-08-19] MEDS: ATORVASTATIN 80 MG TAB PO SCH (20:39)
[2018-08-19] MEDS: LATANOPROST 0.005% 2.5 ML OPH BOTH EYES SCH (20:39)
[2018-08-19] MEDS: MONTELUKAST 10 MG TAB PO SCH (20:39)
[2018-08-19 20:42] VITALS: BP 115/53; PULSE 65; RESP 16
[2018-08-20 03:29] VITALS: BP 122/69; PULSE 62; RESP 20
[2018-08-20 07:30] VITALS: BP 133/68; PULSE 73; RESP 16
[2018-08-20] MEDS: metFORMIN 500 MG TAB PO SCH ×2 (08:00→17:10)
[2018-08-20] MEDS: TOLTERODINE (SR) 4 MG CAP PO SCH (08:20)
[2018-08-20] MEDS: CITALOPRAM 20 MG TAB PO SCH (08:20)
[2018-08-20] MEDS: LOSARTAN 50 MG TAB PO SCH (08:21)
[2018-08-20] MEDS: INSULIN ASPART [NOVOLOG] 3 ML PEN SC SCH ×4 (08:22→20:54)
--- NOTE | 2018-08-20 11:38 | PN ---
Date/Time of Note Date/Time of Note DATE: 08/20/18 TIME: 11:35 Assessment/Plan VTE Prophylaxis Risk score (from Ns)>0 risk: 3 SCD applied (from Ns): Yes Pharmacological prophylaxis: NA/contraindicated Pharm contraindication: bleeding Lines/Catheters IV Catheter Type (from Nrs): Saline Lock Assessment/Plan Assessment/Plan 1. UTI with hematuria - Urine Cx negative at this time as expected given was on antibiotics as outpatient - repeat UA shows improvement - US pelvic noted - Urology consultation appreciated and plans for cystoscopy and possible TURB tomorrow - CT A/P results noted. 2. DM - A1c noted - continue home medications - ISS and accuchecks 3. HTN - continue home medications - adjust as needed 4. HLD - continue statin 5. Disposition - Plans for cystoscopy tomorrow per Urology recommendations. Patient eager to be discharged following procedure if possible. Result Diagram: 08/19/18 0537 08/19/18 0537 Results 24hrs Laboratory Tests Test 08/19/18 12:03 08/19/18 17:01 08/19/18 20:36 08/20/18 02:26 Bedside Glucose 232 H 232 H 264 H 212 Test 08/20/18 08:10 Bedside Glucose 232 H Subjective 24 Hr Interval Summary Free Text/Dictation Patient states shes feeling better and urine has remained clear. Increase PO hydration as well. Still agreeable to staying for cystoscopy tomorrow. Exam/Review of Systems Exam Vitals Vital Signs Date Temp Pulse Resp B/P (MAP) Pulse Ox O2 O2 Flow FiO2 Time Delivery Rate 08/20/18 97.8 73 16 133/68 95 Room Air 07:30 (89) Intake and Output 08/19/18 08/19/18 08/20/18 1515:00 23:00 07:00 IntakeIntake Total 550 ml BalanceBalance 550 ml Exam General: Patient is a pleasant female currently lying in bed in no acute distress Chest: Nontender Lungs: Clear to auscultation bilaterally no crackles rales or wheezing Heart: Normal S1-S2, Regular rhythm and rate. No murmur, S3, or S4 Abdomen: Soft ,nontender to palpation, nondistended , bowel sounds are present. No guarding no rebound tenderness Extremities: Normal to inspection, no edema no cyanosis Results Results 24hrs Laboratory Tests Test 08/19/18 12:03 08/19/18 17:01 08/19/18 20:36 08/20/18 02:26 Bedside Glucose 232 H 232 H 264 H 212 Test 08/20/18 08:10 Bedside Glucose 232 H Medications Medication Current Medications Citalopram Hydrobromide (Celexa) 20 mg DAILY PO ; Start 08/19/18 at 09:00 Latanoprost (Xalatan) 1 drop QHS BOTH EYES Last administered on 08/19/18at 20:39; Admin Dose 1 DROP; Start 08/18/18 at 21:00 Losartan Potassium (Cozaar) 100 mg DAILY PO Last administered on 08/20/18 08:21; Admin Dose 100 MG; Start 08/19/18 at 09:00 Metformin HCl (Glucophage) 1,000 mg WITH BREAKFAST DINNE PO ; Start 08/19/18 at 08:00 Montelukast Sodium (Singulair) 10 mg QHS PO ; Start 08/18/18 at 21:00 Tolterodine Tartrate (Detrol La) 4 mg DAILY PO Last administered on 08/20/18at 08:20; Admin Dose 4 MG; Start 08/19/18 at 09:00 Atorvastatin Calcium (Lipitor) 80 mg DAILY@21 PO Last administered on 08/19/18at 20:39; Admin Dose 80 MG; Start 08/18/18 at 21:00 Pantoprazole (Protonix Tab) 40 mg DAILY@06 PO Last administered on 08/19/18at 08:42; Admin Dose 40 MG; Start 08/19/18 at 06:00 IV Flush (NS 3 ml) 3 ml PER PROTOCOL IV ; Start 08/18/18 at 19:00 Ondansetron HCl (Zofran Inj) 4 mg Q6H PRN IV NAUSEA/VOMITING; Start 08/18/18 at 19:00 Acetaminophen (Tylenol Tab) 650 mg Q6H PRN PO .PAIN 1-3 OR TEMP; Start 08/18/18 at 19:00 Docusate Sodium (Colace) 100 mg Q12H PRN PO .CONSTIPATION; Start 08/18/18 at 19:00 Magnesium Hydroxide (Milk Of Mag) 30 ml DAILY PRN PO .CONSTIPATION; Start 08/18/18 at 19:00 Ketorolac Tromethamine (Toradol) 30 mg Q6H PRN IV MILD TO MODERATE PAIN (1-7); Start 08/18/18 at 19:00; Stop 08/21/18 at 18:59 Levofloxacin/ Dextrose 150 ml @ 100 mls/hr Q24H IVPB Last administered on 08/19/18at 18:09; Admin Dose 100 MLS/HR; Start 08/18/18 at 19:00 Miscellaneous Information 1 ea NOTE XX ; Start 08/18/18 at 20:00 Glucose (Glutose) 15 gm Q15M PRN PO DECREASED GLUCOSE; Start 08/18/18 at 20:00 Glucose (Glutose) 22.5 gm Q15M PRN PO DECREASED GLUCOSE; Start 08/18/18 at 20:00 Dextrose (D50w Syringe) 25 ml Q15M PRN IV DECREASED GLUCOSE; Start 08/18/18 at 20:00 Dextrose (D50w Syringe) 50 ml Q15M PRN IV DECREASED GLUCOSE; Start 08/18/18 at 20:00 Glucagon (Glucagen) 1 mg Q15M PRN IM DECREASED GLUCOSE; Start 08/18/18 at 20:00 Glucose (Glutose) 15 gm Q15M PRN BUCCAL DECREASED GLUCOSE; Start 08/18/18 at 20:00 Insulin Aspart (Novolog Insulin Pen) NOVOLOG *MODERATE* ALGORITHM WITH MEALS BEDTIME SC Last administered on 08/20/18at 08:22; Admin Dose 6 UNIT; Start 08/20/18 at 08:00 JOSE CENTENO MD Aug 20, 2018 11:38
[2018-08-20 14:14] VITALS: BP 118/57; PULSE 68; RESP 16
[2018-08-20] MEDS: LEVOFLOXACIN 750MG/D5W (PMX) 150 ML IVPB SCH (18:36)
--- NOTE | 2018-08-20 19:41 | CONS ---
Consult Date/Type/Reason Admit Date/Time Aug 19, 2018 at 08:31 Initial Consult Date 08/18/18 Type of Consultation: Urology Reason for Consultation Hematuria Requesting Provider: JOSE CENTENO MD Date/Time of Note DATE: 08/20/18 TIME: 19:37 Subjective Patient states that she is feeling comfortable and has no pain. She also states that her urine is clear now. Objective Vitals Vital Signs Date Temp Pulse Resp B/P (MAP) Pulse Ox O2 O2 Flow FiO2 Time Delivery Rate 08/20/18 98.0 68 16 118/57 96 Room Air 14:14 (77) Intake and Output 08/19/18 08/19/18 08/20/18 1515:00 23:00 07:00 IntakeIntake Total 550 ml BalanceBalance 550 ml Exam The abdomen is soft. The bladder is not distended. Urine culture no growth after 48 hours. Results/Medications Result Diagram: 08/19/18 0537 08/19/18 0537 Results 24 hrs Laboratory Tests Test 08/19/18 20:36 08/20/18 02:26 08/20/18 08:10 08/20/18 12:12 Bedside Glucose 264 H 212 232 H 240 H Test 08/20/18 17:13 Bedside Glucose 323 H Home Meds Reported Medications Rosuvastatin Calcium* (Crestor*) 20 Mg Tablet, 20 MG PO QHS, #30 TAB 08/18/18 Tolterodine Tartrate* (Tolterodine Tartrate* ER) 4 Mg Cap.er.24h, 4 MG PO DAILY, #30 CAP 08/18/18 Citalopram Hydrobromide* (Celexa*) 20 Mg Tablet, 20 MG PO DAILY, #30 TAB 08/18/18 Omeprazole* (Omeprazole*) 40 Mg Capsule.dr, 40 MG PO DAILY, #30 CAP 08/18/18 Metformin Hcl* (Metformin Hcl*) 1,000 Mg Tablet, 1000 MG PO WITH BREAKFAST DINNE , #60 TAB 08/18/18 Montelukast Sodium* (Montelukast Sodium*) 10 Mg Tablet, 10 MG PO QHS, #30 TAB 08/18/18 Latanoprost (Latanoprost) 2.5 Ml Drops, 1 DROP BOTH EYES QHS, #1 BOTTLE 08/18/18 Ergocalciferol (Vitamin D2) (VITAMIN D2) 50,000 Unit Capsule, 41053 UNIT PO EVERY TUESDAY, CAP 08/18/18 Losartan Potassium* (Losartan Potassium*) 100 Mg Tablet, 100 MG PO DAILY, TAB 08/18/18 Empagliflozin (Jardiance) 25 Mg Tablet, 25 MG PO DAILY, TAB 08/18/18 Nystatin (Nystatin) 500,000 Unit Tablet, 998056 UNIT PO BID, TAB STARTED 08-16-18 FOR 7 DAYS 08/18/18 Ciprofloxacin Hcl* (Ciprofloxacin Hcl*) 500 Mg Tablet, 500 MG PO BID, #14 TAB STARTED 08-16-18 FOR 7 DAYS 08/18/18 Medications Current Medications Citalopram Hydrobromide (Celexa) 20 mg DAILY PO ; Start 08/19/18 at 09:00 Latanoprost (Xalatan) 1 drop QHS BOTH EYES Last administered on 08/19/18at 20:39; Admin Dose 1 DROP; Start 08/18/18 at 21:00 Losartan Potassium (Cozaar) 100 mg DAILY PO Last administered on 08/20/18at 08:21; Admin Dose 100 MG; Start 08/19/18 at 09:00 Metformin HCl (Glucophage) 1,000 mg WITH BREAKFAST DINNE PO ; Start 08/19/18 at 08:00 Montelukast Sodium (Singulair) 10 mg QHS PO ; Start 08/18/18 at 21:00 Tolterodine Tartrate (Detrol La) 4 mg DAILY PO Last administered on 08/20/18at 08:20; Admin Dose 4 MG; Start 08/19/18 at 09:00 Atorvastatin Calcium (Lipitor) 80 mg DAILY@21 PO Last administered on 08/19/18at 20:39; Admin Dose 80 MG; Start 08/18/18 at 21:00 Pantoprazole (Protonix Tab) 40 mg DAILY@06 PO Last administered on 08/19/18at 08:42; Admin Dose 40 MG; Start 08/19/18 at 06:00 IV Flush (NS 3 ml) 3 ml PER PROTOCOL IV ; Start 08/18/18 at 19:00 Ondansetron HCl (Zofran Inj) 4 mg Q6H PRN IV NAUSEA/VOMITING; Start 08/18/18 at 19:00 Acetaminophen (Tylenol Tab) 650 mg Q6H PRN PO .PAIN 1-3 OR TEMP; Start 08/18/18 at 19:00 Docusate Sodium (Colace) 100 mg Q12H PRN PO .CONSTIPATION; Start 08/18/18 at 19:00 Magnesium Hydroxide (Milk Of Mag) 30 ml DAILY PRN PO .CONSTIPATION; Start 08/18/18 at 19:00 Ketorolac Tromethamine (Toradol) 30 mg Q6H PRN IV MILD TO MODERATE PAIN (1-7); Start 08/18/18 at 19:00; Stop 08/21/18 at 18:59 Levofloxacin/ Dextrose 150 ml @ 100 mls/hr Q24H IVPB Last administered on 08/20/18at 18:36; Admin Dose 100 MLS/HR; Start 08/18/18 at 19:00 Miscellaneous Information 1 ea NOTE XX ; Start 08/18/18 at 20:00 Glucose (Glutose) 15 gm Q15M PRN PO DECREASED GLUCOSE; Start 08/18/18 at 20:00 Glucose (Glutose) 22.5 gm Q15M PRN PO DECREASED GLUCOSE; Start 08/18/18 at 20:00 Dextrose (D50w Syringe) 25 ml Q15M PRN IV DECREASED GLUCOSE; Start 08/18/18 at 20:00 Dextrose (D50w Syringe) 50 ml Q15M PRN IV DECREASED GLUCOSE; Start 08/18/18 at 20:00 Glucagon (Glucagen) 1 mg Q15M PRN IM DECREASED GLUCOSE; Start 08/18/18 at 20:00 Glucose (Glutose) 15 gm Q15M PRN BUCCAL DECREASED GLUCOSE; Start 08/18/18 at 2 0:00 Insulin Aspart (Novolog Insulin Pen) NOVOLOG *MODERATE* ALGORITHM WITH MEALS BEDTIME SC Last administered on 08/20/18at 17:15; Admin Dose 10 UNIT; Start 08/20/18 at 08:00 Assessment/Plan Hospital Course (Demo Recall) 58-year-old female presented to the emergency room with a history of gross hematuria for the past 3 days. Patient does have a history of similar problem about 3 months earlier and was hospitalized at [facility] where she had a three-way [place] catheter on continuous bladder irrigation. It has been assumed that the hematuria is from urinary tract infection. Patient did have renal ultrasound at the other facility and she was told the kidneys are okay she did have a CT scan but there was so much blood clots in the bladder that they could not diagnose anything else. She was not seen by a urologist. She denies any prior history of kidney stones. She did have pain with urination when she had the hematuria. On the examination the patient is obese and the abdomen is soft, I did pelvic exam and there was no discharge and no vaginal bleeding. Then I did do straight cath on her and collected about 250 mL of urine. Initially the urine came out clear then at the end it turns bloody. Patient states that she is urinating clear urine now. The urine culture showed no growth in 48 hours. Urine cytology is pending. The CT scan of the abdomen and pelvis with IV contrast was done and it showed: 1. Diffuse mural thickening of the decompressed urinary bladder with surrounding perivesical inflammation, concerning for cystitis. 2. Kidneys demonstrate symmetric attenuation and enhancement without hydronephrosis, nephrolithiasis, or obstructive uropathy The urine culture was negative and that could be because the patient was already on antibiotic at home or there was no infection and she could have a bladder tumor. Therefore the plan is to do a cystoscopy, possible transurethral resection of bladder tumor and bilateral retrograde pyelograms. I did explain the procedure to the patient and the possible findings. I did answer any question that she had. She is agreeable to proceed. LUCY INMAN MD Aug 20, 2018 19:40
[2018-08-20 20:30] VITALS: BP 113/60; PULSE 76; RESP 16
[2018-08-20] MEDS: ATORVASTATIN 80 MG TAB PO SCH (20:52)
[2018-08-20] MEDS: LATANOPROST 0.005% 2.5 ML OPH BOTH EYES SCH (20:52)
[2018-08-20] MEDS: MONTELUKAST 10 MG TAB PO SCH (20:57)
[2018-08-21] VITALS (16 sets, daily range): BP systolic 110–149; BP diastolic 44–79; PULSE 62–78; RESP 10–23
[2018-08-21] MEDS: PANTOPRAZOLE (EC) 40 MG TAB PO SCH (05:33)
[2018-08-21] MEDS: SOD CHLORIDE 0.9% 1,000 ML IV SCH (07:03)
[2018-08-21] MEDS: metFORMIN 500 MG TAB PO SCH ×2 (08:00→18:05)
[2018-08-21] MEDS: TOLTERODINE (SR) 4 MG CAP PO SCH (08:09)
[2018-08-21] MEDS: CITALOPRAM 20 MG TAB PO SCH (08:09)
[2018-08-21] MEDS: LOSARTAN 50 MG TAB PO SCH (08:09)
[2018-08-21] MEDS: INSULIN ASPART [NOVOLOG] 3 ML PEN SC SCH ×4 (09:06→21:38)
--- NOTE | 2018-08-21 11:59 | PN ---
Date/Time of Note Date/Time of Note DATE: 08/21/18 TIME: 11:58 Objective Vitals Vital Signs Date Temp Pulse Resp B/P (MAP) Pulse Ox O2 O2 Flow FiO2 Time Delivery Rate 08/21/18 98.2 62 16 119/59 95 08:00 (79) 08/20/18 Room Air 14:14 Intake and Output 08/20/18 08/20/18 08/21/18 1515:00 23:00 07:00 IntakeIntake Total 760 ml 450 ml BalanceBalance 760 ml 450 ml Results Result Diagram: 08/21/1814 08/21/1814 Medications Medications Current Medications Citalopram Hydrobromide (Celexa) 20 mg DAILY PO ; Start 08/19/18 at 09:00 Latanoprost (Xalatan) 1 drop QHS BOTH EYES Last administered on 08/20/18at 20:52; Admin Dose 1 DROP; Start 08/18/18 at 21:00 Losartan Potassium (Cozaar) 100 mg DAILY PO Last administered on 08/20/18at 08:21; Admin Dose 100 MG; Start 08/19/18 at 09:00 Metformin HCl (Glucophage) 1,000 mg WITH BREAKFAST DINNE PO ; Start 08/19/18 at 08:00 Montelukast Sodium (Singulair) 10 mg QHS PO ; Start 08/18/18 at 21:00 Tolterodine Tartrate (Detrol La) 4 mg DAILY PO Last administered on 08/20/18 08:20; Admin Dose 4 MG; Start 08/19/18 at 09:00 Atorvastatin Calcium (Lipitor) 80 mg DAILY@21 PO Last administered on 08/20/18at 20:52; Admin Dose 80 MG; Start 08/18/18 at 21:00 Pantoprazole (Protonix Tab) 40 mg DAILY@06 PO Last administered on 08/19/18at 08:42; Admin Dose 40 MG; Start 08/19/18 at 06:00 IV Flush (NS 3 ml) 3 ml PER PROTOCOL IV ; Start 08/18/18 at 19:00 Ondansetron HCl (Zofran Inj) 4 mg Q6H PRN IV NAUSEA/VOMITING; Start 08/18/18 at 19:00 Acetaminophen (Tylenol Tab) 650 mg Q6H PRN PO .PAIN 1-3 OR TEMP; Start 08/18/18 at 19:00 Docusate Sodium (Colace) 100 mg Q12H PRN PO .CONSTIPATION; Start 08/18/18 at 19:00 Magnesium Hydroxide (Milk Of Mag) 30 ml DAILY PRN PO .CONSTIPATION; Start 08/18/18 at 19:00 Ketorolac Tromethamine (Toradol) 30 mg Q6H PRN IV MILD TO MODERATE PAIN (1-7); Start 08/18/18 at 19:00; Stop 08/21/18 at 18:59 Levofloxacin/ Dextrose 150 ml @ 100 mls/hr Q24H IVPB Last administered on 08/20/18at 18:36; Admin Dose 100 MLS/HR; Start 08/18/18 at 19:00 Miscellaneous Information 1 ea NOTE XX ; Start 08/18/18 at 20:00 Glucose (Glutose) 15 gm Q15M PRN PO DECREASED GLUCOSE; Start 08/18/18 at 20:00 Glucose (Glutose) 22.5 gm Q15M PRN PO DECREASED GLUCOSE; Start 08/18/18 at 20:00 Dextrose (D50w Syringe) 25 ml Q15M PRN IV DECREASED GLUCOSE; Start 08/18/18 at 20:00 Dextrose (D50w Syringe) 50 ml Q15M PRN IV DECREASED GLUCOSE; Start 08/18/18 at 20:00 Glucagon (Glucagen) 1 mg Q15M PRN IM DECREASED GLUCOSE; Start 08/18/18 at 20:00 Glucose (Glutose) 15 gm Q15M PRN BUCCAL DECREASED GLUCOSE; Start 08/18/18 at 20:00 Sodium Chloride 1,000 ml @ 70 mls/hr [id number] IV Last administered on 08/21/18at 07:03; Admin Dose 70 MLS/HR; Start 08/21/18 at 07:00 Insulin Aspart (Novolog Insulin Pen) NOVOLOG *MILD* ALGORI... Q4 SC Last administered on 08/21/18at 09:06; Admin Dose 3 UNIT; Start 08/21/18 at 09:00 VTE Prophylaxis Risk score (from Nsg)>0 risk: 3 SCD applied (from Nsg): Yes Lines/Catheters IV Catheter Type: Wayne in Place: No Assessment/Plan Hospital Course Subjective Patient feeling well, no more urinary complaints Objective Physical exam General: Patient is laying in bed and answers questions appropriately Mentation: Patient is alert and oriented 4, Head: Normocephalic atraumatic Eyes: EOMI, pupils reactive to light Neck: Supple, nontender, midline Respiratory: Clear to auscultation bilaterally Cardiovascular: regular rate, no obvious murmurs Gastrointestinal: non-tender to palpation, bowel sounds heard. Neurological: Moves all extremities spontaneously Skin: No new skin lesions Assessment/Plan 1. UTI with hematuria - Urine Cx negative at this time as expected given was on antibiotics as outpatient - repeat UA shows improvement - US pelvic noted - Urology consultation appreciated and plans for cystoscopy and possible TURB today - CT A/P results noted. 2. DM - A1c noted - continue home medications - ISS and accuchecks 3. HTN - continue home medications - adjust as needed 4. HLD - continue statin 5. Disposition -Cystoscopy today, if negative will likely discharge tomorrow if okay with infectious disease and urology CECELIA ZUÑIGA Aug 21, 2018 11:59
--- NOTE | 2018-08-21 16:50 | CONS ---
DATE OF ADMISSION: 08/19/2018 DATE OF CONSULTATION: 08/21/2018 TYPE OF CONSULTATION: Infectious disease. REASON FOR CONSULTATION: Antibiotic management. HISTORY OF PRESENT ILLNESS: Zaria Huynh is a 58-year-old Japanese-[place] female who came to the emergency room on 08/18/2018 with hematuria and symptoms of UTI. Her past problems include: 1. Adult-onset diabetes mellitus. 2. Hypertension. 3. ALLERGY TO PENICILLIN. The patient complained of hematuria, frequency, urgency and dysuria from 3 days prior to admission. She was seen by her primary physician 48 hours prior to the emergency room visit and was started on C ipro. Her symptoms worsened and she experienced increasing hematuria. One year ago, she had similar presentation that required a Wayne catheter placement for continuous bladder irrigation. She has mi ld suprapubic pain. She is scheduled to undergo an ultrasound of the pelvis. She is not short of br eath. She has no palpitation. She had tactile fever with shaking chills. On admission, she was afe brile. Her white count was 11.3, H and H of 13.5 and 41.2, platelet count 251,000. BUN and creatini ne is 15/0.9, glucose of 226. She had 79% neutrophils with white count of 11.3. Her urine showed tr lorraine leukocyte esterase, but 182 white cells per high powered field, 3+ hemoglobin. The patient was b egun on ceftriaxone. She comes in from home. Her urine cultures are negative at 48 hours. Her whit e count today is 8000. She is currently on Levaquin. A vaginal ultrasound shows nabothian cyst. Bi lateral ovaries are not visualized. CT scan of the abdomen and pelvis: Diffuse mural thickening of the decompressed urinary bladder with surrounding vesicle inflammation concerning for cystitis. Kidn eys demonstrate symmetric attenuation and enhancement without hydronephrosis, nephrolithiasis or obst ructive uropathy. Chest x-ray: No radiographic evidence of acute cardiopulmonary process, aortic at herosclerosis. The patient was seen by Dr. Gordon. She was feeling more comfortable on 08/20/2018 with less pain. Today, her white count is 8000. She is feeling better. No more urinary complaints. PHYSICAL EXAMINATION: GENERAL: She is lying in bed in no acute distress. VITAL SIGNS: Stable. She is afebrile. SKIN: Without generalized rash. HEENT: Within normal limits. NECK: Supple. LYMPH NODES: None palpable. CHEST: Decreased breath sounds at the bases. HEART: Without murmur or gallop. ABDOMEN: Soft, nontender without organosplenomegaly or masses. EXTREMITIES: Without cyanosis, clubbing or edema. RECTAL AND GENITAL: Deferred. NEUROLOGICAL: No focal neurological abnormalities. IMPRESSION AND PLAN: Urinary cultures are negative at this time since she was on antibiotics as an o utpatient. Repeat UA shows improvement. Urology consultation was done. There is a plan for cystosc opy and possible TURB today. We will continue her on current therapy. She may be a candidate for di scharge tomorrow if she remains afebrile and doing well. I will dictate my findings to the [facility] and to Dr. Gordon. Dictated By: MARISA SANTOS MD, JD/NTS Conf#: [id number] DID#: [id number] CC: JOSE CENTENO MD; CECELIA ZUÑIGA MD;*EndCC*
--- NOTE | 2018-08-21 17:08 | PREAC ---
Date/Time of Note Date/Time of Note DATE: 08/21/18 TIME: 17:08 Anesthesia Eval and Record Evaluation Time Pre-Procedure Interview DATE: 08/21/18 TIME: 17:08 Age 58 Sex female NPO: 8 hrs Preoperative diagnosis Gross hematuria, bladder tumor Planned procedure Cystoscopy, possible TURBT and bilateral retrograde pyelogram Past Medical History Past Medical History: Includes Cardio: HTN, Dyslipidemia Endo: Diabetes Pulm: Asthma GI: Morbid obesity Surgery & Anesthesia Issues No known issue Meds Anticoagulation: No Beta Aziza within 24 hr: No Reason Beta Aziza not given: Pt. not on B-Aziza Reported Medications Rosuvastatin Calcium* (Crestor*) 20 Mg Tablet, 20 MG PO QHS, #30 TAB 08/18/18 Tolterodine Tartrate* (Tolterodine Tartrate* ER) 4 Mg Cap.er.24h, 4 MG PO DAILY, #30 CAP 08/18/18 Citalopram Hydrobromide* (Celexa*) 20 Mg Tablet, 20 MG PO DAILY, #30 TAB 08/18/18 Omeprazole* (Omeprazole*) 40 Mg Capsule.dr, 40 MG PO DAILY, #30 CAP 08/18/18 Metformin Hcl* (Metformin Hcl*) 1,000 Mg Tablet, 1000 MG PO WITH BREAKFAST DINNE, #60 TAB 08/18/18 Montelukast Sodium* (Montelukast Sodium*) 10 Mg Tablet, 10 MG PO QHS, #30 TAB 08/18/18 Latanoprost (Latanoprost) 2.5 Ml Drops, 1 DROP BOTH EYES QHS, #1 BOTTLE 08/18/18 Ergocalciferol (Vitamin D2) (VITAMIN D2) 50,000 Unit Capsule, 43601 UNIT PO EVERY TUESDAY, CAP 08/18/18 Losartan Potassium* (Losartan Potassium*) 100 Mg Tablet, 100 MG PO DAILY, TAB 08/18/18 Empagliflozin (Jardiance) 25 Mg Tablet, 25 MG PO DAILY, TAB 08/18/18 Nystatin (Nystatin) 500,000 Unit Tablet, 505012 UNIT PO BID, TAB STARTED 08-16-18 FOR 7 DAYS 08/18/18 Ciprofloxacin Hcl* (Ciprofloxacin Hcl*) 500 Mg Tablet, 500 MG PO BID, #14 TAB STARTED 08-16-18 FOR 7 DAYS 08/18/18 Current Medications Citalopram Hydrobromide (Celexa) 20 mg DAILY PO ; Start 08/19/18 at 09:00 Latanoprost (Xalatan) 1 drop QHS BOTH EYES Last administered on 08/20/18 20:52; Admin Dose 1 DROP; Start 08/18/18 at 21:00 Losartan Potassium (Cozaar) 100 mg DAILY PO Last administered on 08/20/18 08:21; Admin Dose 100 MG; Start 08/19/18 at 09:00 Metformin HCl (Glucophage) 1,000 mg WITH BREAKFAST DINNE PO ; Start 08/19/18 at 08:00 Montelukast Sodium (Singulair) 10 mg QHS PO ; Start 08/18/18 at 21:00 Tolterodine Tartrate (Detrol La) 4 mg DAILY PO Last administered on 08/20/18 08:20; Admin Dose 4 MG; Start 08/19/18 at 09:00 Atorvastatin Calcium (Lipitor) 80 mg DAILY@21 PO Last administered on 08/20/18 20:52; Admin Dose 80 MG; Start 08/18/18 at 21:00 Pantoprazole (Protonix Tab) 40 mg DAILY@06 PO Last administered on 08/19/18 08:42; Admin Dose 40 MG; Start 08/19/18 at 06:00 IV Flush (NS 3 ml) 3 ml PER PROTOCOL IV ; Start 08/18/18 at 19:00 Ondansetron HCl (Zofran Inj) 4 mg Q6H PRN IV NAUSEA/VOMITING; Start 08/18/18 at 19:00 Acetaminophen (Tylenol Tab) 650 mg Q6H PRN PO .PAIN 1-3 OR TEMP; Start 08/18/18 at 19:00 Docusate Sodium (Colace) 100 mg Q12H PRN PO .CONSTIPATION; Start 08/18/18 at 19:00 Magnesium Hydroxide (Milk Of Mag) 30 ml DAILY PRN PO .CONSTIPATION; Start 08/18/18 at 19:00 Ketorolac Tromethamine (Toradol) 30 mg Q6H PRN IV MILD TO MODERATE PAIN (1-7); Start 08/18/18 at 19:00; Stop 08/21/18 at 18:59 Levofloxacin/ Dextrose 150 ml @ 100 mls/hr Q24H IVPB Last administered on 6/30/19at 18:36; Admin Dose 100 MLS/HR; Start 08/18/18 at 19:00 Miscellaneous Information 1 ea NOTE XX ; Start 08/18/18 at 20:00 Glucose (Glutose) 15 gm Q15M PRN PO DECREASED GLUCOSE; Start 08/18/18 at 20:00 Glucose (Glutose) 22.5 gm Q15M PRN PO DECREASED GLUCOSE; Start 08/18/18 at 20:00 Dextrose (D50w Syringe) 25 ml Q15M PRN IV DECREASED GLUCOSE; Start 08/18/18 at 20:00 Dextrose (D50w Syringe) 50 ml Q15M PRN IV DECREASED GLUCOSE; Start 08/18/18 at 20:00 Glucagon (Glucagen) 1 mg Q15M PRN IM DECREASED GLUCOSE; Start 08/18/18 at 20:00 Glucose (Glutose) 15 gm Q15M PRN BUCCAL DECREASED GLUCOSE; Start 08/18/18 at 20:00 Sodium Chloride 1,000 ml @ 70 mls/hr [id number] IV Last administered on 08/21/18at 07:03; Admin Dose 70 MLS/HR; Start 08/21/18 at 07:00 Insulin Aspart (Novolog Insulin Pen) NOVOLOG *MILD* ALGORI... Q4 SC Last administered on 08/21/18at 13:09; Admin Dose 2 UNIT; Start 08/21/18 at 09:00 Meds reviewed: Yes Allergies Uncoded Allergies: PENICILLIN (Allergy, Severe, TONGUE SWELLING, RASH, 08/18/18) Allergies Reviewed: Yes Labs/Studies Labs Reviewed: Reviewed by anesthesiologist Result Diagram: 08/21/18 0514 08/21/18 0514 Laboratory Tests 08/21/18 05:14 test: N/A Pre-procedure Exam Last vitals Vital Signs Date Temp Pulse Resp B/P (MAP) Pulse Ox O2 O2 Flow FiO2 Time Delivery Rate 08/21/18 98.3 65 20 123/59 93 14:00 (80) 08/20/18 Room Air 14:14 Airway: Adequate mouth opening Mallampati: Mallampati II Teeth: Normal Lung: Normal Heart: Normal ASA Physical Status ASA physical status: 3 Emergency: None Planned Anesthetic General/MAC: ETT Planned Pain Management Parenteral pain med Pre-operative Attestations Prior to commencing anesthesia and surgery, the patient was re-evaluated, there was verification of: *The patient's identity *The results of appropriate recent lab work and preoperative vital signs *The above evaluation not changing prior to induction *Anesthetic plan, risk benefits, alternative and complications discussed with patient/family; questions answered; patient/family understands, accepts and wishes to proceed. ABE ZUÑIGA MD Aug 21, 2018 17:08
[2018-08-21] MEDS ORDERED: NEOSTIGMINE 3 MG/3 ML SYRINGE ONE (17:17)
[2018-08-21] MEDS ORDERED: SUCCINYLCHOLINE CHLORIDE 100 MG/5 ML SYG IV ONE ×2 (17:17→18:21)
[2018-08-21] MEDS ORDERED: LIDOCAINE 2% (SDV) 5 ML INJ ONE (17:17)
[2018-08-21] MEDS ORDERED: ROCURONIUM 50 MG INJ ONE (17:17)
[2018-08-21] MEDS ORDERED: PROPOFOL 20 ML ONE (17:17)
[2018-08-21] MEDS ORDERED: GLYCOPYRROLATE 0.4 MG INJ ONE (17:17)
[2018-08-21] MEDS ORDERED: MEPERIDINE 100 MG INJ ONE (17:18)
--- NOTE | 2018-08-21 17:24 | HPN ---
Date/Time of Note Date/Time of Note DATE: 08/21/18 TIME: 17:23 Interval H&P Admission Note Pt. seen H&P reviewed: No system changes LUCY INMAN MD Aug 21, 2018 17:23
[2018-08-21] MEDS ORDERED: IOHEXOL 300MG/ML 30 ML BTL ONE (17:30)
[2018-08-21] MEDS ORDERED: CIPROFLOXACIN 400MG/D5W 200 ML ONE (17:42)
[2018-08-21] MEDS ORDERED: IOHEXOL 300MG/ML 30 ML BTL IV ONE (18:10)
[2018-08-21] MEDS ORDERED: ONDANSETRON 4 MG INJ ONE (18:14)
[2018-08-21] MEDS ORDERED: METOCLOPRAMIDE 10 MG INJ ONE (18:14)
[2018-08-21] MEDS ORDERED: MEPERIDINE 25 MG INJ IV PRN (18:30)
[2018-08-21] MEDS ORDERED: EPHEDrine 25 MG/5 ML SYG IV PRN (18:30)
[2018-08-21] MEDS ORDERED: hydrALAzine 20 MG INJ IV PRN (18:30)
[2018-08-21] MEDS ORDERED: FENTAnyl 50 MCG/ML VIAL IV PRN ×3 (18:30)
[2018-08-21] MEDS ORDERED: DIPHENHYDRAMINE 50 MG INJ IV PRN (18:30)
[2018-08-21] MEDS ORDERED: MIDAZOLAM 1 MG/ML 2 ML INJ IV PRN (18:30)
[2018-08-21] MEDS ORDERED: ONDANSETRON 4 MG INJ IV PRN (18:30)
[2018-08-21] MEDS ORDERED: LABETALOL HCL 20MG INJ IV PRN (18:30)
[2018-08-21] MEDS ORDERED: HYDROmorphONE 1 MG/5 ML IV SYRINGE IV PRN ×3 (18:30)
[2018-08-21] MEDS ORDERED: METOCLOPRAMIDE 10 MG INJ IV PRN (18:30)
--- NOTE | 2018-08-21 19:00 | OPR ---
Date/Time of Note Date/Time of Note DATE: 08/21/18 TIME: 18:54 Operative Report Procedure Date: Aug 21, 2018 Preoperative Diagnosis Gross hematuria on admission and urinary tract infection prior to admission Postoperative Diagnosis Same, cystitis from urinary tract infection, pending pathology report Operation/Procedure Performed Cystoscopy and bilateral retrograde pyelograms and bladder biopsies Surgeon see signature line Plate Slitter And Inspector Jorge Blanchard Anesthesia Type: general Anesthesiologist: ABE ZUÑIGA MD Estimated Blood Loss: minimal Transfusion none Specimen Urine for culture and sensitivity from the bladder, bladder biopsy right lateral wall, bladder biopsy left base of bladder Grafts/Implants none Complications none Pt Condition Post Procedure: stable Disposition: PACU Indications Gross hematuria Procedure Description Patient was brought to the operating room and general anesthesia was induced. Patient was positioned in the lithotomy position and the genital area was prepped and draped in the usual sterile manner. The patient was given 400 mg of Cipro IV at the start of the procedure. Timeout was done and the patient was identified by her name, birthdate, the procedure. #22 Spanish cystoscope sheath was introduced into the bladder. Urine was collected for culture and sensitivit y. Then the bladder was inspected with the certainty degree and 70 degree lenses. The bladder had multiple areas of erythema and redness suggestive of cystitis. There was no evidence of papillary tumor. She does have bilateral bladder diverticuli that are [place]. Spot films were taken between the bladder and the kidneys using the C arm. And a retrograde pyelogram was done first on the left side then on the right side using 8 Spanish cone-tip ureteral catheter. Retrograde pyelograms appeared to be normal. Then I did take 2 biopsies of the bladder one on the right lateral wall and one at the base of the bladder and electrocoagulated the areas of the biopsy with the round tip Bugbee electrode. Good hemostasis was obtained the bladder was then emptied and the patient was transferred to the recovery room in a stable and satisfactory condition. LUCY INMAN MD Aug 21, 2018 19:00
[2018-08-21] MEDS ORDERED: FENTAnyl 50 MCG/ML VIAL ONE (19:02)
[2018-08-21] MEDS: MONTELUKAST 10 MG TAB PO SCH (21:00)
[2018-08-21] MEDS: ATORVASTATIN 80 MG TAB PO SCH (21:00)
[2018-08-21] MEDS: LATANOPROST 0.005% 2.5 ML OPH BOTH EYES SCH (21:40)
[2018-08-21] MEDS: ACETAMINOPHEN 325 MG TAB PO PRN (23:50)
[2018-08-22 02:00] VITALS: BP 119/61; PULSE 65; RESP 18
[2018-08-22] MEDS ORDERED: ACCU-CHEK XX SCH (02:00)
[2018-08-22] MEDS: SOD CHLORIDE 0.9% 1,000 ML IV SCH (02:24)
[2018-08-22] MEDS ORDERED: LEVOFLOXACIN 750MG/D5W (PMX) 150 ML IVPB SCH (06:00)
[2018-08-22] MEDS: PANTOPRAZOLE (EC) 40 MG TAB PO SCH (06:22)
[2018-08-22] MEDS ORDERED: CEPASTAT LOZENGE MT PRN (08:00)
[2018-08-22 08:15] VITALS: BP 147/68; PULSE 69; RESP 16
--- NOTE | 2018-08-22 08:16 | CONS ---
Consult Date/Type/Reason Admit Date/Time Aug 19, 2018 at 08:31 Initial Consult Date 08/18/18 Type of Consultation: Urology Reason for Consultation Hematuria Requesting Provider: JOSE CENTENO MD Date/Time of Note DATE: 08/22/18 TIME: 08:13 Subjective Patient complains of sore throat and that is because of the endotracheal intubation during surgery. Objective Vitals Vital Signs Date Temp Pulse Resp B/P (MAP) Pulse Ox O2 O2 Flow FiO2 Time Delivery Rate 08/22/18 98.6 65 18 119/61 96 02:00 (80) 08/21/18 Nasal 2.0 20:10 Cannula Intake and Output 08/21/18 08/21/18 08/22/18 1515:00 23:00 07:00 IntakeIntake Total 900 ml 710 ml OutputOutput Total 10 ml BalanceBalance 890 ml 710 ml Exam Abdomen is soft. Her urine is clear. Results/Medications Result Diagram: 08/22/18 0519 08/22/18 05 Results 24 hrs Laboratory Tests Test 08/21/18 09:00 08/21/18 13:08 08/21/18 20:46 08/21/18 21:30 Bedside Glucose 244 H 206 208 218 Test 08/22/18 02:22 08/22/18 05:19 Bedside Glucose 239 H White Blood Count 9.3 Red Blood Count 4.08 L Hemoglobin 11.6 L Hematocrit 35.0 L Mean Corpuscular Volume 85.8 Mean Corpuscular 28.4 L Hemoglobin Mean Corpuscular 33.1 Hemoglobin Concent Red Cell Distribution 13.7 Width Platelet Count 212 Mean Platelet Volume 10.9 H Immature Granulocytes % 0.500 H Neutrophils % 71.4 Lymphocytes % 22.0 Monocytes % 5.1 Eosinophils % 0.8 Basophils % 0.2 Nucleated Red Blood 0.0 Cells % Immature Granulocytes # 0.050 H Neutrophils # 6.6 Lymphocytes # 2.0 Monocytes # 0.5 Eosinophils # 0.1 Basophils # 0.0 Nucleated Red Blood 0.0 Cells # Sodium Level 141 Potassium Level 3.8 Chloride Level 107 Carbon Dioxide Level 25 Anion Gap 9 Blood Urea Nitrogen 10 Creatinine 0.41 L Glucose Level 212 Calcium Level 8.7 Phosphorus Level 3.2 Magnesium Level 1.8 Albumin 3.5 Home Meds Reported Medications Rosuvastatin Calcium* (Crestor*) 20 Mg Tablet, 20 MG PO QHS, #30 TAB 08/18/18 Tolterodine Tartrate* (Tolterodine Tartrate* ER) 4 Mg Cap.er.24h, 4 MG PO DAILY, #30 CAP 08/18/18 Citalopram Hydrobromide* (Celexa*) 20 Mg Tablet, 20 MG PO DAILY, #30 TAB 08/18/18 Omeprazole* (Omeprazole*) 40 Mg Capsule.dr, 40 MG PO DAILY, #30 CAP 08/18/18 Metformin Hcl* (Metformin Hcl*) 1,000 Mg Tablet, 1000 MG PO WITH BREAKFAST DINNE, #60 TAB 08/18/18 Montelukast Sodium* (Montelukast Sodium*) 10 Mg Tablet, 10 MG PO QHS, #30 TAB 08/18/18 Latanoprost (Latanoprost) 2.5 Ml Drops, 1 DROP BOTH EYES QHS, #1 BOTTLE 08/18/18 Ergocalciferol (Vitamin D2) (VITAMIN D2) 50,000 Unit Capsule, 64824 UNIT PO EVERY TUESDAY, CAP 08/18/18 Losartan Potassium* (Losartan Potassium*) 100 Mg Tablet, 100 MG PO DAILY, TAB 08/18/18 Empagliflozin (Jardiance) 25 Mg Tablet, 25 MG PO DAILY, TAB 08/18/18 Nystatin (Nystatin) 500,000 Unit Tablet, [id number] UNIT PO BID, TAB STARTED 08-16-18 FOR 7 DAYS 08/18/18 Ciprofloxacin Hcl* (Ciprofloxacin Hcl*) 500 Mg Tablet, 500 MG PO BID, #14 TAB STARTED 08-16-18 FOR 7 DAYS 08/18/18 Medications Current Medications Citalopram Hydrobromide (Celexa) 20 mg DAILY PO ; Start 08/19/18 at 09:00 Latanoprost (Xalatan) 1 drop QHS BOTH EYES Last administered on 08/21/18at 21:40; Admin Dose 1 DROP; Start 08/18/18 at 21:00 Losartan Potassium (Cozaar) 100 mg DAILY PO Last administered on 08/20/18at 08 :21; Admin Dose 100 MG; Start 08/19/18 at 09:00 Metformin HCl (Glucophage) 1,000 mg WITH BREAKFAST DINNE PO ; Start 08/19/18 at 08:00 Montelukast Sodium (Singulair) 10 mg QHS PO ; Start 08/18/18 at 21:00 Tolterodine Tartrate (Detrol La) 4 mg DAILY PO Last administered on 08/20/18at 08:20; Admin Dose 4 MG; Start 08/19/18 at 09:00 Atorvastatin Calcium (Lipitor) 80 mg DAILY@21 PO Last administered on 08/20/18at 20:52; Admin Dose 80 MG; Start 08/18/18 at 21:00 Pantoprazole (Protonix Tab) 40 mg DAILY@06 PO Last administered on 08/22/18at 06:22; Admin Dose 40 MG; Start 08/19/18 at 06:00 IV Flush (NS 3 ml) 3 ml PER PROTOCOL IV ; Start 08/18/18 at 19:00 Ondansetron HCl (Zofran Inj) 4 mg Q6H PRN IV NAUSEA/VOMITING Last administered on 08/21/18at 20:36; Admin Dose 4 MG; Start 08/18/18 at 19:00 Acetaminophen (Tylenol Tab) 650 mg Q6H PRN PO .PAIN 1-3 OR TEMP Last administered on 08/21/18at 23:50; Admin Dose 650 MG; Start 08/18/18 at 19:00 Docusate Sodium (Colace) 100 mg Q12H PRN PO .CONSTIPATION; Start 08/18/18 at 19:00 Magnesium Hydroxide (Milk Of Mag) 30 ml DAILY PRN PO .CONSTIPATION; Start at 19:00 Miscellaneous Information 1 ea NOTE XX ; Start 08/18/18 at 20:00 Glucose (Glutose) 15 gm Q15M PRN PO DECREASED GLUCOSE; Start 08/18/18 at 20:00 Glucose (Glutose) 22.5 gm Q15M PRN PO DECREASED GLUCOSE; Start 08/18/18 at 20:00 Dextrose (D50w Syringe) 25 ml Q15M PRN IV DECREASED GLUCOSE; Start 08/18/18 at 20:00 Dextrose (D50w Syringe) 50 ml Q15M PRN IV DECREASED GLUCOSE; Start 08/18/18 at 20:00 Glucagon (Glucagen) 1 mg Q15M PRN IM DECREASED GLUCOSE; Start 08/18/18 at 20:00 Glucose (Glutose) 15 gm Q15M PRN BUCCAL DECREASED GLUCOSE; Start 08/18/18 at 20:00 Sodium Chloride 1,000 ml @ 70 mls/hr [id number] IV Last administered on 08/22/18at 02:24; Admin Dose 70 MLS/HR; Start 08/21/18 at 07:00 Levofloxacin/ Dextrose 150 ml @ 100 mls/hr Q24H IVPB Last administered on 08/22/18at 06:22; Admin Dose 100 MLS/HR; Start 08/22/18 at 06:00 Diagnostic Test (Pha) (Accu-Chek) 1 ea 02 XX ; Start 08/22/18 at 02:00 Insulin Aspart (Novolog Insulin Pen) NOVOLOG *MODERATE* ALGORITHM WITH MEALS BE DTIME SC Last administered on 08/21/18at 21:38; Admin Dose 1 UNIT; Start 08/21/18 at 21:30 Phenol (Cepastat Lozenge) 1 lozenge Q2 PRN MT Sore Throat; Start 08/22/18 at 08:00 Assessment/Plan Hospital Course (Demo Recall) 58-year-old female presented to the emergency room with a history of gross hematuria for the past 3 days. Patient does have a history of similar problem about 3 months earlier and was hospitalized at [facility] where she had a three-way Wayne catheter on continuous bladder irrigation. It has been assumed that the hematuria is from urinary tract infection. Patient did have renal ultrasound at the other facility and she was told the kidneys are okay she did have a CT scan but there was so much blood clots in the bladder that they could not diagnose anything else. She was not seen by a urologist. She denies any prior history of kidney stones. She did have pain with urination when she had the hematuria. On the examination the patient is obese and the abdomen is soft, I did pelvic exam and there was no discharge and no vaginal bleeding. Then I did do straight cath on her and collected about 250 mL of urine. Initially the urine came out clear then at the end it turns bloody. Patient states that she is urinating clear urine now. The urine culture showed no growth in 48 hours. Urine cytology is pending. The CT scan of the abdomen and pelvis with IV contrast was done and it showed: 1. Diffuse mural thickening of the decompressed urinary bladder with surrounding perivesical inflammation, concerning for cystitis. 2. Kidneys demonstrate symmetric attenuation and enhancement without h ydronephrosis, nephrolithiasis, or obstructive uropathy The urine culture was negative and that could be because the patient was already on antibiotic at home Patient underwent cystoscopy and bilateral retrograde pyelograms and bladder biopsy on 08/21/2018. The findings most likely were cystitis. There was no evidence of papillary bladder tumor. The retrograde pyelograms were normal. The patient does have sore throat because of the endotracheal intubation. She may be discharged home today. She should continue on the antibiotic Levaquin daily for another 7 days. LUCY INMAN MD Aug 22, 2018 08:16
[2018-08-22] MEDS: CEPASTAT LOZENGE MT PRN ×2 (08:35→12:17)
[2018-08-22] MEDS: ACETAMINOPHEN 325 MG TAB PO PRN (08:35)
[2018-08-22] MEDS: metFORMIN 500 MG TAB PO SCH (08:36)
[2018-08-22] MEDS: LOSARTAN 50 MG TAB PO SCH (08:36)
[2018-08-22] MEDS: TOLTERODINE (SR) 4 MG CAP PO SCH (08:36)
[2018-08-22] MEDS: INSULIN ASPART [NOVOLOG] 3 ML PEN SC SCH ×2 (08:42→12:17)
[2018-08-22] MEDS: CITALOPRAM 20 MG TAB PO SCH (08:47)
[2018-08-22] MEDS ORDERED: LEVO750T25 PO (11:53)
--- NOTE | 2018-08-22 11:55 | PDOCDIS ---
Discharge Instructions CONDITION [id number] Patient Condition: [id number] Stable FOLLOW UP/APPOINTMENTS Follow-up Plan 1. Please continue to take your other home medications, please stop ciprofl oxacin 2. Please finish your antibiotic, Levaquin for another 7 days, please start on August 23, 2018 3. Please get a complete blood count (CBC), by tomorrow from your primary care provider in order to ensure no further drop in hemoglobin, your hemoglobin on discharge was 11.6, slight drop from 13.8 the day before procedure. 4. Please follow-up with biopsy results within 1 week CECELIA ZUÑIGA Aug 22, 2018 11:55
--- NOTE | 2018-08-22 12:01 | DS ---
Date/Time of Note Date/Time of Note DATE: 08/22/18 TIME: 12:01 Discharge Summary Admission/Discharge Info Admit Date/Time Aug 19, 2018 at 08:31 Discharge Date/Time Patient Condition: Stable Hospital Course Patient is a female with a past medical history significant for diabetes mellitus, hypertension, dyslipidemia who presents to [facility] for urinary complaints. Patient was diagnosed with UTI with hematuria and was also seen by urology. Patient underwent cystoscopy and did not find any significant abnormality. Patient knows to follow-up with biopsy results within 1 week. Patient was also seen by infectious disease during this time for UTI. Patient will be discharged with an additional week of Levaquin to follow-up with her primary care provider as soon as possible. Patient also knows to get a repeat CBC for mildly low hemoglobin which is likely secondary to mild hematuria and procedure loss due to cystoscopy. Patient will continue other home medications and will be discharged today. Discharge diagnosis UTI with hematuria, resolving Diabetes mellitus Hypertension Dyslipidemia Nabothian cyst Home Meds Active Scripts Levofloxacin* (Levaquin*) 750 Mg Tablet, 750 MG PO DAILY, #7 TAB Please start on 08/23/18 Prov:CECELIA ZUÑIGA 08/22/18 Reported Medications Rosuvastatin Calcium* (Crestor*) 20 Mg Tablet, 20 MG PO QHS, #30 TAB 08/18/18 Tolterodine Tartrate* (Tolterodine Tartrate* ER) 4 Mg Cap.er.24h, 4 MG PO DAILY, #30 CAP 08/18/18 Citalopram Hydrobromide* (Celexa*) 20 Mg Tablet, 20 MG PO DAILY, #30 TAB 08/18/18 Omeprazole* (Omeprazole*) 40 Mg Capsule.dr, 40 MG PO DAILY, #30 CAP 08/18/18 Metformin Hcl* (Metformin Hcl*) 1,000 Mg Tablet, 1000 MG PO WITH BREAKFAST DINNE, #60 TAB 08/18/18 Montelukast Sodium* (Montelukast Sodium*) 10 Mg Tablet, 10 MG PO QHS, #30 TAB 08/18/18 Latanoprost (Latanoprost) 2.5 Ml Drops, 1 DROP BOTH EYES QHS, #1 BOTTLE 08/18/18 Ergocalciferol (Vitamin D2) (VITAMIN D2) 50,000 Unit Capsule, [id number] UNIT PO EVERY TUESDAY, CAP 08/18/18 Losartan Potassium* (Losartan Potassium*) 100 Mg Tablet, 100 MG PO DAILY, TAB 08/18/18 Empagliflozin (Jardiance) 25 Mg Tablet, 25 MG PO DAILY, TAB 08/18/18 Discontinued Reported Medications Nystatin (Nystatin) 500,000 Unit Tablet, [id number] UNIT PO BID, TAB STARTED 08-16-18 FOR 7 DAYS 08/18/18 Ciprofloxacin Hcl* (Ciprofloxacin Hcl*) 500 Mg Tablet, 500 MG PO BID, #14 TAB STARTED 08-16-18 FOR 7 DAYS 08/18/18 Follow-up Plan 1. Please continue to take your other home medications, please stop ciprofloxa mi 2. Please finish your antibiotic, Levaquin for another 7 days, please start on August 23, 2018 3. Please get a complete blood count (CBC), by tomorrow from your primary care provider in order to ensure no further drop in hemoglobin, your hemoglobin on d ischarge was 11.6, slight drop from 13.8 the day before procedure. 4. Please follow-up with biopsy results within 1 week #5. Please let your primary care provider know that you have been diagnosed with a likely nabothian cyst within your cervix Primary Care Provider Not On Staff Doctor Time spent on discharge: > 30 minutes Pending Labs Laboratory Tests Test 08/21/18 13:08 08/21/18 20:46 08/21/18 21:30 08/22/18 02:22 Bedside 206 208 218 239 Glucose mg/dL (70-220) mg/dL (70-220) mg/dL (70-220) mg/dL (70-220) Test 08/22/18 05:19 08/22/18 08:34 White Blood 9.3 Count 10^3/ul (4.8-10 .8) Red Blood 4.08 Count 10^6/ul (4.20-5 .40) Hemoglobin 11.6 g/dl (12.0-16.0 ) Hematocrit 35.0 % (37.0-47.0) Mean 85.8 Corpuscular fl (82.0-101.0) Volume Mean 28.4 Corpuscular pg (29.0-33.0) Hemoglobin Mean 33.1 Corpuscular g/dl (32.0-37.0 Hemoglobin Conc ) ent Red Cell 13.7 Distribution % (11.5-14.5) Width Platelet Count 212 10^3/UL (140-41 5) Mean Platelet 10.9 Volume fl (7.4-10.4) Immature 0.500 Granulocytes % % (0.001-0.429) Neutrophils % 71.4 % (39.0-77.0) Lymphocytes % 22.0 % (15.0-51.0) Monocytes % 5.1 % (0.0-11.0) Eosinophils % 0.8 % (0.0-7.0) Basophils % 0.2 % (0.0-2.0) Nucleated Red 0.0 Blood Cells % /100WBC (0.0-0. 0) Immature 0.050 Granulocytes # 10^3/ul (0.0-0. 031) Neutrophils # 6.6 10^3/ul (1.6-7. 5) Lymphocytes # 2.0 10^3/ul (0.8-2. 9) Monocytes # 0.5 10^3/ul (0.3-0. 9) Eosinophils # 0.1 10^3/ul (0.0-0. 5) Basophils # 0.0 10^3/ul (0.0-0. 1) Nucleated Red 0.0 Blood Cells # 10^3/ul (0.0-0. 0) Sodium Level 141 mmol/L (135-144 ) Potassium 3.8 Level mmol/L (3.5-5.1 ) Chloride Level 107 mmol/L (97-110) Carbon Dioxide 25 Level mmol/L (21-31) Anion Gap 9 (5-13) Blood Urea 10 mg/dl (7-20) Nitrogen Creatinine 0.41 mg/dl (0.44-1.0 0) Glucose Level 212 mg/dl (70-220) Calcium Level 8.7 mg/dl (8.4-10.2 ) Phosphorus 3.2 Level mg/dl (2.5-4.9) Magnesium 1.8 Level mg/dl (1.7-2.5) Albumin 3.5 g/dl (3.3-4.9) Bedside 232 Glucose mg/dL (70-220) Microbiology Date/Time Source Procedure Growth Status 08/21/18 18:10 Cystobladder Urine Culture - Preliminary NO GROWTH Resulted AFTER 24 HOURS CECELIA ZUÑIGA Aug 22, 2018 12:01
[2018-08-22 13:24] VITALS: BP 125/86; PULSE 82; RESP 16
--- NOTE | 2018-08-22 15:07 | PAC ---
Date/Time of Note Date/Time of Note DATE: 08/22/18 TIME: 15:07 Post-Anesthesia Notes Post-Anesthesia Note Last documented vital signs Vital Signs Date Temp Pulse Resp B/P (MAP) Pulse Ox O2 O2 Flow FiO2 Time Delivery Rate 08/22/18 98.2 82 16 125/86 96 13:24 (99) 08/21/18 Nasal 2.0 20:10 Cannula Activity: WNL Respiratory function: WNL Cardiovascular function: WNL Mental status: Baseline Pain reasonably controlled: Yes Hydration appropriate: Yes Nausea/Vomiting absent: Yes ABE ZUÑIGA MD Aug 22, 2018 15:07
--- NOTE | 2018-08-23 15:44 | RADRPT ---
Vent Rate: 68 bpm RR Interval: 880 msec MD Interval: 141 msec QRS Duration: 96 msec QT Interval: 399 msec QTC Interval: 425 msec P-R-T [place]: 78 - 60 - 40 degrees Sinus rhythm...normal P axis, V-rate 50- 99 Low voltage, precordial leads...precordial leads <1.0mV Electronically Signed By: Santo Mercedes
== END 2018-08-22 13:35 | disposition home or self-care (01) | DRG 670 ==
LOC: E/R 14:13 → PP2 18:09 → SUATTDRO 18:50 → OBSVTOIN 08-19 08:31
PROVIDERS: ADMIT Internal Medicine; ATTEND Internal Medicine
PROC: BT141ZZ Fluoroscopy of Kidneys, Ureters and Bladder using Low Osmolar Contrast (ICD-10-PCS; 2018-08-21)
PROC: 0TBB8ZX Excision of Bladder, Via Natural or Artificial Opening Endoscopic, Diagnostic (ICD-10-PCS; principal; 2018-08-21 16:30)
DX: R31.0 Gross hematuria (principal); N30.91 Cystitis, unspecified with hematuria; E11.8 Type 2 diabetes mellitus with unspecified complications; Z79.4 Long term (current) use of insulin
CPT/HCPCS: 36415; 71045; 74178; 74420; 76830; 80048; 80053; 80069; 81001; 82550; 82553; 82962; 83036; 83735; 84484; 85025; 85610; 85730; 87086; 88104; 88305; 93005; 96374; G0378; J0696; J0744; J1815; J1956; J2175; J2405; J2710; J2765; J3010; J7030; Q9967